=== PATIENT | male | born 1985 | race Caucasian/White ===

== ENCOUNTER 2020-11-29 09:19 | Inpatient (IN) | payer OTHER ==
[2020-11-29 09:32] LABS: Glucose,Whole Blood 69 mg/dL (75-99)
[2020-11-29] MEDS ORDERED: SODIUM CHLORIDE 0.9% 1,000 ML IV ONE ×2 (09:51)
[2020-11-29] MEDS: NOREPINEPHRINE 32 MG in SODIUM CHLORIDE 0.9% 218 ML IV ONE ×2 (09:55→22:55)
[2020-11-29 10:17] LABS: ABG Base Excess -24.8 mmol/L; ABG HCO3 11 mmol/L (21-25); ABG PO2 185 mmHg (83-108); ABG TCO2 14 mmol/L (19-24); Allen Test Performed? Yes
[2020-11-29 10:18] LABS: ABG PH <6.80 (7.35-7.45)
[2020-11-29 10:22] LABS: ABG PCO2 89 mmHg (35-45)
[2020-11-29 10:25] LABS: Appearance,Urine Cloudy (Clear); Bilirubin,Urine Negative (Negative); Blood,Urine Negative (Negative); Color,Urine Yellow; Glucose,Urine (UA) Negative (Negative); Hyaline Casts,Urine 2 /lpf (0-2); Ketones,Urine Negative (Negative); Leukocyte Esterase,Urine Negative (Negative); Mucus,Urine Rare /hpf; Nitrite,Urine Negative (Negative); Protein,Urine 1+ (Negative); RBC,Urine 9 /hpf (0-5); Specific Gravity,Urine 1.028 (1.001-1.035); WBC,Urine 14 /hpf (0-5)
[2020-11-29 10:32] LABS: Amphetamine Screen,Urine Detected (NotDetected); Barbiturate Screen,Urine Not Detected (NotDetected); Benzodiazepines Screen,Urine Detected (NotDetected); Cocaine Screen,Urine Detected (NotDetected); Methadone Screen, Urine Not Detected (NotDetected); Opiate Screen,Urine Detected (NotDetected); Oxycodone Screen, Urine Not Detected (NotDetected); Phencyclidine Screen,Urine Not Detected (NotDetected); Tricyclic Antidepressant,Urine Not Detected (NotDetected); Urn Cannabinoid Scrn Detected (NotDetected)
--- NOTE | 2020-11-29 10:42 | XR ---
EXAMINATION TYPE: XR chest 1V portable DATE OF EXAM: 11/29/2020 Comparison: None Clinical History: 34-year-old male confusion, heroine overdose, altered mental status Findings: ET tube is in place. The johnny is not well seen. Recommend pulling back the ET tube by 1.5 cm in rec ess and follow-up. Heart normal size. Right perihilar and upper and midlung consolidation. Some left perihilar consolidation also noted. No pleural effusion. No pneumothorax. NG tube courses below the d iaphragm. Impression: 1. Johnny not well seen in relation to the tip of the ET tube. Suspect that it is acceptable. As a pr ecautionary measure, pull back 1.5 cm. 2. Extensive right-sided consolidation and developing left perihilar consolidation. Correlate for pne umonia, aspiration, or developing noncardiogenic pulmonary edema as a consequence of the heroin overd ose.
--- NOTE | 2020-11-29 10:46 | CT ---
EXAMINATION TYPE: CT brain wo con DATE OF EXAM: 11/29/2020 COMPARISON: None HISTORY: Unresponsive. CT DLP: 1103.[address] of the brain was performed. The ventricles, basal cisterns and sulci overlying the cerebral convexities demonstrate a normal appe arance. There is no evidence for intracranial hemorrhage or sulcal effacement. No mass effects are seen. Osseous calvarium is intact. If symptoms persist consider MRI as clinically warranted. IMPRESSION: 1. No acute intracranial process is seen at this time.
[2020-11-29 10:50] LABS: Prothrombin Time 10.8 sec (9.0-12.0)
[2020-11-29] MEDS ORDERED: NALOXONE 0.4 MG/ML 1 ML VIAL IV PRN (11:04)
--- NOTE | 2020-11-29 11:04 | ED ---
CPR HPI - General Chief Complaint: Cardiac Arrest/CPR Stated Complaint: Unresponsive Time Seen by Provider: 11/29/20 09:20 Source: EMS Mode of arrival: EMS Limitations: no limitations, physical limitation - History of Present Illness Initial Comments: 35-year-old unidentified male presents to the emergency department status post cardiac arrest. EMS provided the history. They state that the patient was last seen well yesterday night. He was at a friends house. He has a history of polysubstance abuse. Friends awoke this morning around 8 pm and found him unresponsive on the floor. EMS arrived to the scene and found that the patient was pulseless. They did initiate CPR. The patient received 6 rounds of epinephrine and 2 mg of Narcan. He had 35 minutes with CPR before they recieved ROSC on the patient. He is intubated with an ET tube in the field. Patient is brought into the emergency department completely unresponsive with a GCS of 3. He is being bagged. He does have a tachycardic rhythm with a hypertensive blood pressure. Pupils are fixed and dilated at 6 mm. Patient had no gag during intubation. The friends deny that the patient had any medical problems. No known medications. No family that is reachable at this time. - Related Data Home Medications Medication Instructions Recorded Confirmed Unable To Assess [Unable to Assess] 11/29/20 11/29/20 Allergies Allergy/AdvReac Type Severity Reaction Status Date / Time No Known Allergies Allergy Verified 11/29/20 09:26 Review of Systems ROS Statement: Those systems with pertinent positive or pertinent negative responses have been documented in the HPI. ROS Other: All systems not noted in ROS Statement are negative. Past Medical History Past Medical History: No Reported History History of Any Multi-Drug Resistant Organisms: None Reported Past Surgical History: No Surgical Hx Reported Past Psychological History: No Psychological Hx Reported Smoking Status: Current every day smoker Past Alcohol Use History: None Reported Past Drug Use History: Heroin, IV Drug Use - Past Family History Father Family Medical History: Coronary Artery Disease (CAD), Myocardial Infarction (MS) Mother Family Medical History: Diabetes Mellitus, Hypertension General Exam Limitations: physical limitation General appearance: obtunded Head exam: Present: atraumatic, normocephalic Eye exam: Present: other (6 mm, non reactive) ENT exam: Present: mucous membranes dry Neck exam: Present: normal inspection Respiratory exam: Present: rales (right base) Cardiovascular Exam: Present: tachycardia, irregular rhythm GI/Abdominal exam: Present: distended Extremities exam: Present: other (no spontanous movement) Neurological exam: Present: altered, other (no gag, does not withdraw to pain, will not follow commands) Skin exam: Present: cyanosis, pallor Course Vital Signs 11/29/20 11/29/20 11/29/20 09:21 10:05 10:44 Temperature 32.4 F L Pulse Rate 102 H 86 89 Respiratory 16 16 20 Rate Blood Pressure 164/56 119/63 105/50 O2 Sat by Pulse 95 100 96 Oximetry 11/29/20 11/29/20 11/29/20 11:00 11:54 13:00 Temperature 90.1 F L 91.2 F L Pulse Rate 96 98 96 Respiratory 20 28 H 28 H Rate Blood Pressure 120/58 135/64 151/89 O2 Sat by Pulse 99 99 100 Oximetry 11/29/20 11/29/20 11/29/20 14:01 15:00 15:07 Temperature 91.2 F L Pulse Rate 92 83 87 Respiratory 28 H 24 28 H Rate Blood Pressure 120/63 139/67 129/90 O2 Sat by Pulse 99 94 L 86 L Oximetry 11/29/20 11/29/20 11/29/20 15:10 16:15 16:56 Temperature 91.8 F L Pulse Rate 88 92 96 Respiratory 28 H 20 Rate Blood Pressure 108/98 105/83 O2 Sat by Pulse 91 L 92 L Oximetry 11/29/20 11/29/20 11/29/20 17:43 18:36 19:27 Temperature 93.2 F L 95.5 F L 96.1 F L Pulse Rate 99 101 H 103 H Respiratory 20 20 20 Rate Blood Pressure 121/89 128/90 141/103 O2 Sat by Pulse 93 L 95 98 Oximetry 11/29/20 11/29/20 11/29/20 20:00 20:28 20:43 Temperature 96.6 F L Pulse Rate 105 H 103 H 104 H Respiratory 20 Rate Blood Pressure 143/105 O2 Sat by Pulse 98 Oximetry 11/29/20 11/29/20 11/29/20 21:00 22:00 23:00 Temperature 97.0 F L 97.2 F L 97.3 F L Pulse Rate 114 H 112 H 103 H Respiratory 26 H 28 H 26 H Rate Blood Pressure 139/104 146/104 122/90 O2 Sat by Pulse 99 99 100 Oximetry Procedures - Central Line Placement Right Femoral Consent Obtained: emergent situation Patient Placed on Monitor/Pulse Ox: Yes Prep: mask, gown, gloves Central Line Prep: Chlorhexidine scrub Ultrasound Used for Placement: Yes Central Line Lumen Inserted: triple Bloods Obtained for Lab: Yes Central Line Position: good blood return, all ports aspirated, flushed, capped, sutured in place with 3-0 nylon Dressing Applied: Tegaderm Patient Tolerated Procedure: well, no complications Medical Decision Making - Medical Decision Making Upon arrival the patient is promptly placed in a trauma bay 1. A thorough history and physical exam is performed. Patient does have pulses at this time and is intubated with an ET tube. Blood pressure is obtained and the patient's blood pressure is hypertensive at this time. Serial blood pressures are obtained and the patient does have trending downward measurements. Due to this the patient is given two push doses of epi. Access was attempted multiple times in the upper extremities however we were unsuccessful originally. I did place a right femoral central line and the patient is started on levophed. Patient does have decreased breath sounds on the left and therefore the tube is retracted 3 cm. Portable chest x-ray is performed. Laboratory studies were conducted. Review of the laboratory studies demonstrate a ph of 6.8, CO 89. Patient's respiratory rate is increased at 22. Potasssium 5.2. Cr 2. Glucose 69 on accucheck. Pt was given an amp of dextrose and repeat glucose is 341. AST 325. ALT 266. Trop 0.047. UA positive for opiates, amphetamines, methamphetamines, benzos, cocaine and thc. Chest x-ray demonstrates extensive right-sided consolidation and developing left perihilar consolidation. Patient is given a dose of Zosyn for suspected aspiration pneumonia. Patient is sent for a CT of his brain to assess for cerebral edema which demonstrates no acute process at this time. I did speak with Dr. Alfonso. Dr. Alfonso does present to the emergency department. Patient is hypotehermic with a temp of 32C. He instructed the patient is to not be warmed at this time and that he will accept the patient in to the ICU. I called and spoke with Dr. Mohr who agreed to admit the patient. Police do locate the patients family. I did speak with the patients parents and sister regarding the circumstances surrounding his event, the care he has been provided and his prognosis. - Lab Data Result diagrams: 11/30/20 03:25 11/30/20 20:45 Lab Results 11/29/20 11/29/20 11/29/20 Range/Units 09:31 10:00 10:01 WBC 8.9 (3.8-10.6) k/uL RBC 4.79 (4.30-5.90) m/uL Hgb 14.4 (13.0-17.5) gm/dL Hct 48.4 (39.0-53.0) % MCV 101.0 H (80.0-100.0) fL MCH 30.1 (25.0-35.0) pg MCHC 29.8 L (31.0-37.0) g/dL RDW 13.2 (11.5-15.5) % Plt Count 342 (150-450) k/uL MPV 7.9 Neutrophils % (Manual) 28 % Band Neuts % (Manual) 7 % Lymphocytes % (Manual) 59 % Monocytes % (Manual) 4 % Eosinophils % (Manual) 1 % Metamyelocytes % 1 % Myelocytes % 1 % Neutrophils # (Manual) 3.10 (1.3-7.7) k/uL Lymphocytes # (Manual) 5.25 H (1.0-4.8) k/uL Monocytes # (Manual) 0.36 (0-1.0) k/uL Eosinophils # (Manual) 0.09 (0-0.7) k/uL Metamyelocytes # (Man) 0.09 H (0) k/uL Myelocytes # (Manual) 0.09 H (0) k/uL Nucleated RBCs 0 (0-0) /100 WBC Manual Slide Review Performed Hypochromasia Marked Macrocytosis Slight PT (9.0-12.0) sec INR (<1.2) APTT (22.0-30.0) sec Sample Site ABG pH (7.35-7.45) ABG pCO2 (35-45) mmHg ABG pO2 (83-108) mmHg ABG HCO3 (21-25) mmol/L ABG Total CO2 (19-24) mmol/L ABG O2 Saturation (94-97) % ABG Base Excess mmol/L Philippe Test FiO2 % Sodium (137-145) mmol/L Potassium (3.5-5.1) mmol/L Chloride (98-107) mmol/L Carbon Dioxide (22-30) mmol/L Anion Gap mmol/L BUN (9-20) mg/dL Creatinine (0.66-1.25) mg/dL Est GFR (CKD-EPI)AfAm (>60 ml/min/1.73 sqM) Est GFR (CKD-EPI)NonAf (>60 ml/min/1.73 sqM) Glucose (74-99) mg/dL POC Glucose (mg/dL) 69 L (75-99) mg/dL POC Glu Silk Spreader ID [place] Light Calcium (8.4-10.2) mg/dL Total Bilirubin (0.2-1.3) mg/dL AST (17-59) U/L ALT (4-49) U/L Alkaline Phosphatase (38-126) U/L Creatine Kinase (55-170) U/L Troponin I (0.000-0.034) ng/mL Total Protein (6.3-8.2) g/dL Albumin (3.5-5.0) g/dL Urine Color Yellow Urine Appearance Cloudy (Clear) Urine pH 6.0 (5.0-8.0) Ur Specific Harris 1.028 (1.001-1.035) Urine Protein 1+ H (Negative) Urine Glucose (UA) Negative (Negative) Urine Ketones Negative (Negative) Urine Blood Negative (Negative) Urine Nitrite Negative (Negative) Urine Bilirubin Negative (Negative) Urine Urobilinogen 2.0 (<2.0) mg/dL Ur Leukocyte Esterase Negative (Negative) Urine RBC 9 H (0-5) /hpf Urine WBC 14 H (0-5) /hpf Hyaline Casts 2 (0-2) /lpf Urine Mucus Rare H (None) /hpf Urine Opiates Screen Detected H (NotDetected) Ur Oxycodone Screen Not Detected (NotDetected) Urine Methadone Screen Not Detected (NotDetected) Ur Propoxyphene Screen Not Detected (NotDetected) Ur Barbiturates Screen Not Detected (NotDetected) U Tricyclic Antidepress Not Detected (NotDetected) Ur Phencyclidine Scrn Not Detected (NotDetected) Ur Amphetamines Screen Detected H (NotDetected) U Methamphetamines Scrn Detected H (NotDetected) U Benzodiazepines Scrn Detected H (NotDetected) Urine Cocaine Screen Detected H (NotDetected) U Marijuana (THC) Screen Detected H (NotDetected) Serum Alcohol mg/dL 11/29/20 11/29/20 11/29/20 Range/Units 10:01 10:01 10:01 WBC (3.8-10.6) k/uL RBC (4.30-5.90) m/uL Hgb (13.0-17.5) gm/dL Hct (39.0-53.0) % MCV (80.0-100.0) fL MCH (25.0-35.0) pg MCHC (31.0-37.0) g/dL RDW (11.5-15.5) % Plt Count (150-450) k/uL MPV Neutrophils % (Manual) % Band Neuts % (Manual) % Lymphocytes % (Manual) % Monocytes % (Manual) % Eosinophils % (Manual) % Metamyelocytes % % Myelocytes % % Neutrophils # (Manual) (1.3-7.7) k/uL Lymphocytes # (Manual) (1.0-4.8) k/uL Monocytes # (Manual) (0-1.0) k/uL Eosinophils # (Manual) (0-0.7) k/uL Metamyelocytes # (Man) (0) k/uL Myelocytes # (Manual) (0) k/uL Nucleated RBCs (0-0) /100 WBC Manual Slide Review Hypochromasia Macrocytosis PT 10.8 (9.0-12.0) sec INR 1.0 (<1.2) APTT 45.0 H (22.0-30.0) sec Sample Site ABG pH (7.35-7.45) ABG pCO2 (35-45) mmHg ABG pO2 (83-108) mmHg ABG HCO3 (21-25) mmol/L ABG Total CO2 (19-24) mmol/L ABG O2 Saturation (94-97) % ABG Base Excess mmol/L Philippe Test FiO2 % Sodium 134 L (137-145) mmol/L Potassium 5.2 H (3.5-5.1) mmol/L Chloride 99 (98-107) mmol/L Carbon Dioxide 7 L* (22-30) mmol/L Anion Gap 28 mmol/L BUN 13 (9-20) mg/dL Creatinine 2.07 H (0.66-1.25) mg/dL Est GFR (CKD-EPI)AfAm 47 (>60 ml/min/1.73 sqM) Est GFR (CKD-EPI)NonAf 41 (>60 ml/min/1.73 sqM) Glucose 341 H (74-99) mg/dL POC Glucose (mg/dL) (75-99) mg/dL POC Glu Silk Spreader ID Calcium 9.3 (8.4-10.2) mg/dL Total Bilirubin 0.7 (0.2-1.3) mg/dL AST 325 H (17-59) U/L ALT 266 H (4-49) U/L Alkaline Phosphatase 95 (38-126) U/L Creatine Kinase 485 H (55-170) U/L Troponin I 0.047 H* (0.000-0.034) ng/mL Total Protein 6.0 L (6.3-8.2) g/dL Albumin 3.4 L (3.5-5.0) g/dL Urine Color Urine Appearance (Clear) Urine pH (5.0-8.0) Ur Specific Harris (1.001-1.035) Urine Protein (Negative) Urine Glucose (UA) (Negative) Urine Ketones (Negative) Urine Blood (Negative) Urine Nitrite (Negative) Urine Bilirubin (Negative) Urine Urobilinogen (<2.0) mg/dL Ur Leukocyte Esterase (Negative) Urine RBC (0-5) /hpf Urine WBC (0-5) /hpf Hyaline Casts (0-2) /lpf Urine Mucus (None) /hpf Urine Opiates Screen (NotDetected) Ur Oxycodone Screen (NotDetected) Urine Methadone Screen (NotDetected) Ur Propoxyphene Screen (NotDetected) Ur Barbiturates Screen (NotDetected) U Tricyclic Antidepress (NotDetected) Ur Phencyclidine Scrn (NotDetected) Ur Amphetamines Screen (NotDetected) U Methamphetamines Scrn (NotDetected) U Benzodiazepines Scrn (NotDetected) Urine Cocaine Screen (NotDetected) U Marijuana (THC) Screen (NotDetected) Serum Alcohol <10 mg/dL 11/29/20 Range/Units 10:11 WBC (3.8-10.6) k/uL RBC (4.30-5.90) m/uL Hgb (13.0-17.5) gm/dL Hct (39.0-53.0) % MCV (80.0-100.0) fL MCH (25.0-35.0) pg MCHC (31.0-37.0) g/dL RDW (11.5-15.5) % Plt Count (150-450) k/uL MPV Neutrophils % (Manual) % Band Neuts % (Manual) % Lymphocytes % (Manual) % Monocytes % (Manual) % Eosinophils % (Manual) % Metamyelocytes % % Myelocytes % % Neutrophils # (Manual) (1.3-7.7) k/uL Lymphocytes # (Manual) (1.0-4.8) k/uL Monocytes # (Manual) (0-1.0) k/uL Eosinophils # (Manual) (0-0.7) k/uL Metamyelocytes # (Man) (0) k/uL Myelocytes # (Manual) (0) k/uL Nucleated RBCs (0-0) /100 WBC Manual Slide Review Hypochromasia Macrocytosis PT (9.0-12.0) sec INR (<1.2) APTT (22.0-30.0) sec Sample Site r brach ABG pH <6.80 L* (7.35-7.45) ABG pCO2 89 H* (35-45) mmHg ABG pO2 185 H (83-108) mmHg ABG HCO3 11 L (21-25) mmol/L ABG Total CO2 14 L (19-24) mmol/L ABG O2 Saturation 97.0 (94-97) % ABG Base Excess -24.8 mmol/L Philippe Test Yes FiO2 100 % Sodium (137-145) mmol/L Potassium (3.5-5.1) mmol/L Chloride (98-107) mmol/L Carbon Dioxide (22-30) mmol/L Anion Gap mmol/L BUN (9-20) mg/dL Creatinine (0.66-1.25) mg/dL Est GFR (CKD-EPI)AfAm (>60 ml/min/1.73 sqM) Est GFR (CKD-EPI)NonAf (>60 ml/min/1.73 sqM) Glucose (74-99) mg/dL POC Glucose (mg/dL) (75-99) mg/dL POC Glu Silk Spreader ID Calcium (8.4-10.2) mg/dL Total Bilirubin (0.2-1.3) mg/dL AST (17-59) U/L ALT (4-49) U/L Alkaline Phosphatase (38-126) U/L Creatine Kinase (55-170) U/L Troponin I (0.000-0.034) ng/mL Total Protein (6.3-8.2) g/dL Albumin (3.5-5.0) g/dL Urine Color Urine Appearance (Clear) Urine pH (5.0-8.0) Ur Specific Harris (1.001-1.035) Urine Protein (Negative) Urine Glucose (UA) (Negative) Urine Ketones (Negative) Urine Blood (Negative) Urine Nitrite (Negative) Urine Bilirubin (Negative) Urine Urobilinogen (<2.0) mg/dL Ur Leukocyte Esterase (Negative) Urine RBC (0-5) /hpf Urine WBC (0-5) /hpf Hyaline Casts (0-2) /lpf Urine Mucus (None) /hpf Urine Opiates Screen (NotDetected) Ur Oxycodone Screen (NotDetected) Urine Methadone Screen (NotDetected) Ur Propoxyphene Screen (NotDetected) Ur Barbiturates Screen (NotDetected) U Tricyclic Antidepress (NotDetected) Ur Phencyclidine Scrn (NotDetected) Ur Amphetamines Screen (NotDetected) U Methamphetamines Scrn (NotDetected) U Benzodiazepines Scrn (NotDetected) Urine Cocaine Screen (NotDetected) U Marijuana (THC) Screen (NotDetected) Serum Alcohol mg/dL Critical Care Time Critical Care Time: Yes Critical Care Time: 32 minutes Disposition Clinical Impression: Cardiac arrest, Polysubstance overdose Disposition: ADMITTED IP TO THIS [facility] Condition: Critical Is patient prescribed a controlled substance at d/c from ED?: No Decision to Admit Reason: Admit from EC Decision Date: 11/29/20 Decision Time: 11:03
[2020-11-29 11:11] LABS: HCT 48.4 % (39.0-53.0); HGB 14.4 gm/dL (13.0-17.5); Hypochromasia Marked; MCH 30.1 pg (25.0-35.0); MCHC 29.8 g/dL (31.0-37.0); Macrocytosis Slight; Mean Platelet Volume 7.9; Platelet Count 342 k/uL (150-450); RBC 4.79 m/uL (4.30-5.90); RDW 13.2 % (11.5-15.5); WBC 8.9 k/uL (3.8-10.6)
[2020-11-29 11:16] LABS: ALT 266 U/L (4-49); AST 325 U/L (17-59); African American GFR (CKD) 47 (>60 ml/min/1.73 sqM); Albumin 3.4 g/dL (3.5-5.0); Alcohol <10 mg/dL; Alkaline Phosphatase 95 U/L (38-126); Anion Gap 28 mmol/L; Blood Urea Nitrogen 13 mg/dL (9-20); Calcium 9.3 mg/dL (8.4-10.2); Chloride 99 mmol/L (98-107); Creatine Kinase 485 U/L (55-170); Glucose 341 mg/dL (74-99); Non-African American GFR(CKD) 41 (>60 ml/min/1.73 sqM); Potassium 5.2 mmol/L (3.5-5.1); Sodium 134 mmol/L (137-145); Total Bilirubin 0.7 mg/dL (0.2-1.3)
[2020-11-29] MEDS: PIPERACILLIN-TAZOBACTAM 3.375 GM in SODIUM CHLORIDE 0.9% 100 ML IVPB SCH ×2 (11:36→20:27)
[2020-11-29] MEDS ORDERED: SODIUM CHLORIDE 0.9% 2,000 ML IV ONE (12:00)
[2020-11-29] MEDS ORDERED: IPRATROPIUM-ALBUTEROL 3 ML NEB INHALATION PRN (12:03)
--- NOTE | 2020-11-29 12:03 | P.CNPUL ---
History of Present Illness Consult date: 11/29/20 Chief complaint: cardiac arrest History of present illness: 35-year-old male patient was found unresponsive by EMS. There is history of polysubstance abuse. The patient was coded for a total of 30 minutes on the scene getting worse a total of 6 doses of epinephrine was given and the patient was also given CPR. The patient was intubated on the scene and following that he was brought in to the emergency department at [facility]. He arrived completely unresponsive with fixed dilated pupils. He was hypothermic. He was also hypotensive. Immediately was placed on norepinephrine infusion which is currently infusing at 0.5 mcg/kg per minute. Urine output is minimal at this point in time. The patient has hypothermic with a temperature of 32C at this point in time is on a mechanical ventilator with a rate of 1 wit h a rate with a tidal volume of 500 and FiO2 of 1% with a PEEP of 5. Blood gases showed a pH of 6.8 with a pCO2 of 89 and pO2 of 185. Coagulation profile was normal. Initial troponin was 0.04. The urine test is positive for amphetamine, methamphetamine, benzodiazepine, and marijuana and cocaine. He was also positive for opiates. UA is showing 14 WBCs, +1 protein, the CBC showing a white cell count of 8.2 hemoglobin 14.4. Post intubation chest x-ray shows an extensive right lung consolidation consistent with an aspiration pneumonia. ET tube was deviated trachea and had to be pulled back by about 1 cm. Patient is covered with IV Zosyn. Currently on pressors with high-dose norepinephrine infusion. Triple lumen catheter was inserted in his right femoral vein by emergency services. He remains completely unresponsive. He has not received any sedation. He is not breathing above the vent. Not to getting the respirator. Pupils are fixed dilated. No cough reflex. No gag reflex. No corneal reflex. No other history is available. The family is unknown and police is trying to locate family members. Review of Systems ROS unobtainable: due to endotracheal tube Past Medical History Past Medical History: No Reported History History of Any Multi-Drug Resistant Organisms: None Reported Past Surgical History: No Surgical Hx Reported Past Psychological History: No Psychological Hx Reported Smoking Status: Current every day smoker Past Alcohol Use History: None Reported Past Drug Use History: Heroin, IV Drug Use Medications and Allergies Home Medications Medication Instructions Recorded Confirmed Type Unable To Assess [Unable to Assess] 11/29/20 11/29/20 History Allergies Allergy/AdvReac Type Severity Reaction Status Date / Time No Known Allergies Allergy Verified 11/29/20 09:26 Physical Exam Vitals: Vital Signs Temp Pulse Resp BP Pulse Ox 11/29/20 11:00 96 20 120/58 99 11/29/20 10:44 89 20 105/50 96 11/29/20 10:05 32.4 F L 86 16 119/63 100 11/29/20 09:21 102 H 16 164/56 95 Intake and Output 11/28/20 11/29/20 11/29/20 22:59 06:59 14:59 Intake Total 8.505 Balance 8.505 Intake: Intake, IV Titration 8.505 Amount Norepinephrine 32 mg In 8.505 Sodium Chloride 0.9% 218 ml @ 0.05 MCG/KG/MIN 2. 126 mls/hr IV .Q24H ONE Rx#:[id number] Other: Weight 90.718 kg Unresponsive, intubated, on a mechanical ventilator, occasional agonal breathing Head exam was generally normal. There was no scleral icterus or corneal arcus. Mucous membranes were moist. Neck was supple and without jugular venous distension, thyromegaly, or carotid bruits. Carotids were easily palpable bilaterally. There was no adenopathy. Lungs reveal equal and symmetrical breath sounds with some rales over the right lung compared to left Cardiac exam revealed the PMI to be normally situated and sized. The rhythm was regular and no extrasystoles were noted during several minutes of auscultation. The first and second heart sounds were normal and physiologic splitting of the second heart sound was noted. There were no murmurs, rubs, clicks, or gallops. Abdominal exam revealed normal bowel sounds. The abdomen was soft, non-tender, and without masses, organomegaly, or appreciable enlargement of the abdominal aorta. Extremities are cold and clammy with diminished pulses. No cyanosis or c lubbing. Neurologic exam is showing fixed dilated pupils. No nystagmus no clonus. No facial asymmetry. Absent corneal reflex. Absent gag reflex. No motor function. No sensory functions. Completely comatose and unresponsive. Results - Laboratory Findings CBC and BMP: 11/29/20 10:01 ABG ABG pH <6.80 (7.35-7.45) L* 08/19/21 10:11 ABG pCO2 89 mmHg (35-45) H* 11/29/20 10:11 ABG pO2 185 mmHg (83-108) H 11/29/20 10:11 ABG O2 Saturation 97.0 % (94-97) 11/29/20 10:11 PT/INR, D-dimer PT 10.8 sec (9.0-12.0) 11/29/20 10:01 INR 1.0 (<1.2) 11/29/20 10:01 Abnormal lab findings: Abnormal Labs 11/29/20 11/29/20 11/29/20 09:31 10:00 10:01 MCV 101.0 H MCHC 29.8 L APTT ABG pH ABG pCO2 ABG pO2 ABG HCO3 ABG Total CO2 POC Glucose (mg/dL) 69 L Troponin I Urine Protein 1+ H Urine RBC 9 H Urine WBC 14 H Urine Mucus Rare H Urine Opiates Screen Detected H Ur Amphetamines Screen Detected H U Methamphetamines Scrn Detected H U Benzodiazepines Scrn Detected H Urine Cocaine Screen Detected H U Marijuana (THC) Screen Detected H 11/29/20 11/29/20 11/29/20 10:01 10:01 10:11 MCV MCHC APTT 45.0 H ABG pH <6.80 L* ABG pCO2 89 H* ABG pO2 185 H ABG HCO3 11 L ABG Total CO2 14 L POC Glucose (mg/dL) Troponin I 0.047 H* Urine Protein Urine RBC Urine WBC Urine Mucus Urine Opiates Screen Ur Amphetamines Screen U Methamphetamines Scrn U Benzodiazepines Scrn Urine Cocaine Screen U Marijuana (THC) Screen - Diagnostic Findings Chest x-ray: image reviewed Assessment and Plan Plan: 1 Acute cardiac arrest with a prolonged down time estimated to be at least 30 minutes.. Clinically the patient is unresponsive has not received any sedation. Consider anoxic encephalopathy. Unfortunately, the neurologic exam is quite poor at this point in time without any brainstem reflexes. Nevertheless the patient's hypothermic and acidotic and a repeat examination is to be done once these metabolic derangements have recovered. CAT scan of the brain was negative. 2 polysubstance abuse positive for benzodiazepines, opiates, marijuana, cocaine and amphetamine and methamphetamine 3 acute hypoxic respiratory failure currently intubated on a mechanical ventilator 4 acute right lung pneumonia, extensive consolidation involving the right lung, consider aspiration 5 acute shock currently on high-dose pressors secondary to above 6 severe metabolic acidosis with a pH of 6.8. 7 troponin leak secondary to above 8 hypothermia secondary to above Plan Continue ventilator support. Increase the respiratory rate of the 28th. Keep the tidal department 500 with an FiO2 100% with a PEEP of 5 and repeated blood gases once the patient is in the intensive care unit Keep the patient additional 4 L of bolus. The patient has already received 2 L in the emergency department and 1 maintaining following that at the rate of 150 mL an hour normal saline Sputum Gram stain and culture and blood culture we'll obtain an official be kept on IV Zosyn Will monitor hemodynamics and temperature Follow-up cardiac enzymes EKG Check lactic acid levels Neurology consultation No sedation for now IV Protonix for GI prophylaxis twice a day Lovenox 40 mg subcu for prophylaxis Obtain echocardiogram Condition is extremely critical. Would locate family members. We'll continue to follow. Time with Patient: Greater than 30
[2020-11-29 12:08] LABS: Band Neutrophils % 7 %; Eosinophils # (M) 0.09 k/uL (0-0.7); Lymphocytes # (M) 5.25 k/uL (1.0-4.8); Metamyelocytes # (M) 0.09 k/uL (0); Metamyelocytes % 1 %; Monocytes # (M) 0.36 k/uL (0-1.0); Myelocytes # (M) 0.09 k/uL (0); Myelocytes % 1 %; Neutrophils % (M) 28 %; Nucleated Red Blood Cells 0 /100 WBC (0-0); Total Cells Counted 200
[2020-11-29 12:13] LABS: Carbon Dioxide 7 mmol/L (22-30)
[2020-11-29] MEDS: PANTOPRAZOLE 40 MG/10 ML VIAL IVP SCH (12:43)
[2020-11-29] MEDS: ENOXAPARIN 40 MG/0.4 ML SYRINGE SQ SCH (12:45)
[2020-11-29] MEDS ORDERED: MANNITOL 20% IV ONE (13:20)
[2020-11-29] MEDS ORDERED: levETIRAcetam IV 1,000 MG in SALINE 1 100ML.BAG IVPB STA (13:26)
--- NOTE | 2020-11-29 13:44 | P.CNNES ---
History of Present Illness Consult date: 11/29/20 Requesting physician: Etelvina Peraza Reason for Consult: cardiac arrest History of Present Illness: This is a 35-year-old gentleman with history of polysubstance abuse who sent her to the emergency department on 11/29/2020 via EMS since the patient was found unresponsive. History is obtained from medical record. It seems the patient was coded for total of at least 30 minutes and received 6 doses a total of epinephrine and also the patient received CPR. Patient was intubated at the scene. Patient arrives completely unresponsive with the fixed dilated pupils and hypothermic and hypotensive per ICU team. Some of the workup in the hospital consisted of: Initial vital signs on presentation is blood pressure of 164/56, heart rate of 102, respiratory of 16, temperature of 32.4 Fahrenheit rectal and the pulse ox of 95% on mechanical ventilation 100%. CT of the head is reported as no acute intracranial process seen at this time. I personally reviewed the CT of the head and I feel like the patient has severe loss of [place] to white matter junction and constricted ventricle size throughout because of cerebral edema. Initial white blood cell is 8.9 which is considered within normal limits. The MCV is 101 which is elevated area otherwise the hemoglobin and hematocrits is normal with a hemoglobin 14.4 hematocrit is 48.4, platelets of 342,000 which is considered within normal limits Chemistry panel is sodium was 134 which is mildly low, initial POC glucose 69 which is boderline low. but the serum glucose of 341 which is elevated. AST of 325, ALT of 266 which are elevated, CK level is 485 which is slightly elevated. Troponin is 0.047 which is slightly elevated. The creatinine is 2.07 also elevated and the carbon dioxide on presentation 7. Urine toxicology screen is positive for opiates, amphetamine, methamphetamine, benzodiazepine, cocaine and marijuana. Serum alcohol level was less than 10. Review of Systems Review of system is limited because of his condition but the pertinent positive and negative as per HPI. Past Medical History Past Medical History: No Reported History History of Any Multi-Drug Resistant Organisms: None Reported Past Surgical History: No Surgical Hx Reported Past Psychological History: No Psychological Hx Reported Smoking Status: Current every day smoker Past Alcohol Use History: None Reported Past Drug Use History: Heroin, IV Drug Use Medications and Allergies Home Medications Medication Instructions Recorded Confirmed Type Unable To Assess [Unable to Assess] 11/29/20 11/29/20 History Allergies Allergy/AdvReac Type Severity Reaction Status Date / Time No Known Allergies Allergy Verified 11/29/20 09:26 Physical Examination - Vital Signs Vital Signs: Vital Signs Temp Pulse Resp BP Pulse Ox 11/29/20 11:54 32.3 F L 98 28 H 135/64 99 11/29/20 11:00 96 20 120/58 99 11/29/20 10:44 89 20 105/50 96 11/29/20 10:05 32.4 F L 86 16 119/63 100 11/29/20 09:21 102 H 16 164/56 95 Intake and Output 11/28/20 11/29/20 11/29/20 22:59 06:59 14:59 Intake Total 8.505 Balance 8.505 Intake: Intake, IV Titration 8.505 Amount Norepinephrine 32 mg In 8.505 Sodium Chloride 0.9% 218 ml @ 0.05 MCG/KG/MIN 2. 126 mls/hr IV .Q24H ONE Rx#:[id number] Other: Weight 90.718 kg GENERAL: The patient is lying and does not appear in distin bed and is not in acute distress. CHEST: The heart rate is regular rate rhythm. No murmurs to auscultation. No carotid bruit bilaterally. LUNG: Clear to auscultation bilaterally no wheezing noted throughout. Not labored breathing. Intubated on mechanical ventilation. Is in agonal breathing (A/C set at 28 and he is breathing at 29). ABDOMEN/GI: Bowel sounds present in all 4 quadrants. No tenderness to palpation throughout. NEUROLOGICAL: Higher mental function: Comatose. GCS3 (E1, VT1, M1). Not attempting to verbalize or following commands. Cranial nerves: I had to manually opens his eyes. Primary gaze is midline. The pupils are round, equal and dilated (7mm) and felt very slugghishly reactive to light (felt went down to 5-6 bilaterally). No corneal reflex. No facial weak ness. Negative occulocephalic reflex. Negative gag reflex. Is breathing over the vent (set at 28 and is breathing at 29). Has agonal breathing. Otherwise rest could not be assessed because of his condition. Motor: The strength is could not be assess because of his condition. Initially to painful stimuli I felt patient was withdrawing on the left upper extremity but on repeated time he did not. Has tremors of the proximal thighs. Normal tone and bulk. Cerebellum: Unable to assess. Sensation: Unable to assess light touch and not withdrawing or grimacing to painful stimuli. Reflexes (right/left): 2+ throughout except at brachioradialis and ankles are 1+ bilaterally.. Plantars are mute bilaterally. Results Urinalysis is negative from for urinary tract infection. Coagulation study: PT of 10.8, INR 1.0, PTT of 45.0 which is mildly elevated - Laboratory Findings CBC and BMP: 11/29/20 10:01 11/29/20 10:01 Abnormal Lab Findings: Abnormal Labs 11/29/20 11/29/20 11/29/20 09:31 10:00 10:01 MCV 101.0 H MCHC 29.8 L Lymphocytes # (Manual) 5.25 H Metamyelocytes # (Man) 0.09 H Myelocytes # (Manual) 0.09 H APTT ABG pH ABG pCO2 ABG pO2 ABG HCO3 ABG Total CO2 Sodium Potassium Carbon Dioxide Creatinine Glucose POC Glucose (mg/dL) 69 L AST ALT Creatine Kinase Troponin I Total Protein Albumin Urine Protein 1+ H Urine RBC 9 H Urine WBC 14 H Urine Mucus Rare H Urine Opiates Screen Detected H Ur Amphetamines Screen Detected H U Methamphetamines Scrn Detected H U Benzodiazepines Scrn Detected H Urine Cocaine Screen Detected H U Marijuana (THC) Screen Detected H 11/29/20 11/29/20 11/29/20 10:01 10:01 10:01 MCV MCHC Lymphocytes # (Manual) Metamyelocytes # (Man) Myelocytes # (Manual) APTT 45.0 H ABG pH ABG pCO2 ABG pO2 ABG HCO3 ABG Total CO2 Sodium 134 L Potassium 5.2 H Carbon Dioxide 7 L* Creatinine 2.07 H Glucose 341 H POC Glucose (mg/dL) AST 325 H ALT 266 H Creatine Kinase 485 H Troponin I 0.047 H* Total Protein 6.0 L Albumin 3.4 L Urine Protein Urine RBC Urine WBC Urine Mucus Urine Opiates Screen Ur Amphetamines Screen U Methamphetamines Scrn U Benzodiazepines Scrn Urine Cocaine Screen U Marijuana (THC) Screen 11/29/20 10:11 MCV MCHC Lymphocytes # (Manual) Metamyelocytes # (Man) Myelocytes # (Manual) APTT ABG pH <6.80 L* ABG pCO2 89 H* ABG pO2 185 H ABG HCO3 11 L ABG Total CO2 14 L Sodium Potassium Carbon Dioxide Creatinine Glucose POC Glucose (mg/dL) AST ALT Creatine Kinase Troponin I Total Protein Albumin Urine Protein Urine RBC Urine WBC Urine Mucus Urine Opiates Screen Ur Amphetamines Screen U Methamphetamines Scrn U Benzodiazepines Scrn Urine Cocaine Screen U Marijuana (THC) Screen Assessment and Plan Assessment: * Anoxic brain injury due to prolonged cardiac arrest (ate least 30 minutes). * Severe Global cerebral edema due to above * Polysubstance abuse (UDS positive for positive for opiates, amphetamine, methamphetamine, benzodiazepine, cocaine) * Elevated liver function tests likely liver shock from cardiac arrest * Hypothermic due Likely #1 * Acute hypoxic respiratory failure and is intubated on a mechanical ventilation * Severe metabolic acidosis * Troponin leak Plan: I loaded the patient with Manitol once and started the patient on 3% hypertonic saline 50cc/hour. Goal Na is 145-155. Q4 hour sodium checks. Ordered a stat EEG. Because of the tremor I started the patient prophylactically on Keppra 750mg IV every 12 hours with loading once of 1gm. I ordered ammonia level, TSH Q1 hours neuro-checks. Started on Thiamine 100mg daily IV. We'll defer the rest of the medical management to the primary and ICU team. Patient's prognosis appears poor because of the prolonged cardiac arrest, significant cerebral edema and neurological exam (has only brainstem reflex: breathing over vent and pupils are slugghishly reactive to light). Recommend patient to be transferred to a tertiary center for escalation of care for his cerebral edema. The plan is discussed with the patient nurse and the primary team. Thank you for the consultation. Francis Ho MD Neuro-Hospitalist Time with Patient: Greater than 30
[2020-11-29] MEDS: THIAMINE 100 MG/ML 2 ML VIAL IVP SCH (13:51)
[2020-11-29] MEDS: SODIUM CHLORIDE 3%(HYPERTONIC) 500 ML IV SCH (13:53)
[2020-11-29] MEDS: IPRATROPIUM-ALBUTEROL 3 ML NEB INHALATION SCH ×2 (14:55→20:28)
--- NOTE | 2020-11-29 15:59 | EEG ---
ELECTROENCEPHALOGRAM REPORT DATE OF SERVICE: 11/29/2020. CLINICAL HISTORY: This is a 35-year-old gentleman who presented to the emergency department after having a cardiac arrest who has altered mental status. The video EEG is obtained to evaluate for seizure epileptiform activity. RELEVANT MEDICATION: The patient is not on any antiepileptic drugs. EEG TYPE: A routine 21-channel EEG is performed with video using the 10/20 electrode placement system. DESCRIPTION: The patient is intubated on a ventilator. The background consists of low voltage 0.5 hertz delta activity that is nonrhythmic and appears to be poorly modulated and poorly sustained. There is no sleep architecture seen. There is no focal slowing seen. There is diffuse myogenic artifact. Interictal and ictal is none. ACTIVATION PROCEDURE: Photic stimulation did not evoke a posterior driving response. There is no abnormality during the photic stimulation. Hyperventilation is not performed. CLINICAL INTERPRETATION: This is an abnormal routine EEG. The background slowing is suggestive of severe encephalopathy. There are no focal slowing, epileptiform discharges or seizure on the EEG. Clinical correlation is recommended. MMANALI / IMELDAN: [id number] / MTDD
[2020-11-29] MEDS: levETIRAcetam IV 750 MG in SODIUM CHLORIDE 0.9% 100 ML IVPB SCH (21:37)
[2020-11-30 00:47] LABS: Glucose,Whole Blood 161 mg/dL (75-99)
[2020-11-30] MEDS: SODIUM CHLORIDE 3%(HYPERTONIC) 500 ML IV SCH ×2 (01:59→12:39)
[2020-11-30] MEDS: PIPERACILLIN-TAZOBACTAM 3.375 GM in SODIUM CHLORIDE 0.9% 100 ML IVPB SCH ×3 (03:34→20:28)
[2020-11-30 03:48] LABS: HCT 52.1 % (39.0-53.0); HGB 16.4 gm/dL (13.0-17.5); Hypochromasia Slight; MCH 29.1 pg (25.0-35.0); MCHC 31.5 g/dL (31.0-37.0); Mean Platelet Volume 7.5; Platelet Count 358 k/uL (150-450); RBC 5.64 m/uL (4.30-5.90); WBC 14.5 k/uL (3.8-10.6)
[2020-11-30 03:55] LABS: MCV 92.4 fL (80.0-100.0)
[2020-11-30 04:05] LABS: Calcium 7.7 mg/dL (8.4-10.2); Potassium 4.5 mmol/L (3.5-5.1)
[2020-11-30 04:52] LABS: ABG Base Excess -17.7 mmol/L; ABG HCO3 12 mmol/L (21-25); ABG Oxygen Saturation 98.8 % (94-97); ABG PCO2 38 mmHg (35-45); ABG PO2 156 mmHg (83-108); ABG TCO2 13 mmol/L (19-24); Allen Test Performed? Yes
[2020-11-30 04:55] LABS: Band Neutrophils % 49 %; Lymphocytes # (M) 2.32 k/uL (1.0-4.8); Metamyelocytes # (M) 0.44 k/uL (0); Metamyelocytes % 3 %; Monocytes # (M) 0.15 k/uL (0-1.0); Myelocytes # (M) 0.15 k/uL (0); Myelocytes % 1 %; Neutrophils % (M) 31 %; Nucleated Red Blood Cells 0 /100 WBC (0-0); Total Cells Counted 200
[2020-11-30 04:56] LABS: Anisocytosis (M) Present; Large Platelets Present; Poikilocytosis (M) Present
[2020-11-30 04:58] LABS: Polychromasia Present
[2020-11-30] MEDS: NOREPINEPHRINE 32 MG in SODIUM CHLORIDE 0.9% 218 ML IV ONE (05:34)
[2020-11-30 06:15] LABS: Glucose,Whole Blood 159 mg/dL (75-99)
[2020-11-30] MEDS: IPRATROPIUM-ALBUTEROL 3 ML NEB INHALATION SCH ×4 (07:21→18:53)
--- NOTE | 2020-11-30 07:37 | P.HPIM ---
History of Present Illness This is a 35 years old male who presents with cardiac arrest. Patient was seen with his friends, last time he was seen a week was yesterday evening. This morning patient was found unresponsive and EMS were called, he underwent CPR and the downtown was about 35-40 minutes, 6 Amps of epinephrine. At presentation he was hypothermic with a temperature of 32.4. He was hypotensive and he had to be placed on the levophed at 0.05 and later on has to be increased at 1.0 g per KG per minute. He was intubated and in place and mechanical ventilations with PEEP of 5, R and had to be increased to 10, tidal: Was 500 and FiO2 of 100%. His pH showing acidosis with 6.8, high pCO2 of 89 and PaO2 185. Troponin were elevated mildly to 0.08 and 0.04. Urine was positive with amphetamines, methamphetamines, benzodiazepines, opioids, cocaine, marijuana. As per report. His friends patient was using any illicit substance he can get his hands on. Chest x-ray showing extensive right lung consolidation suspicious for aspiration pneumonia and patient was started on Zosyn He was unresponsive with pupils fixed and dilated, neurologist suspected cerebral edema and he was started on mannitol and hypertonic saline with low sodium monitoring. Also he was started on Keppra prophylactically. His liver enzymes were slightly elevated around 200-301 increased at 55. Despite his very poor prognosis neurologist recommended patient to be t ransferred to a tertiary care center today given his age and to give him last chance. I discussed the case with Dr. Lino, hospitalist from [facility] who accepted the patient. Review of Systems n/a Past Medical History Past Medical History: No Reported History History of Any Multi-Drug Resistant Organisms: None Reported Past Surgical History: No Surgical Hx Reported Past Psychological History: No Psychological Hx Reported Smoking Status: Current every day smoker Past Alcohol Use History: None Reported Past Drug Use History: Heroin, IV Drug Use - Past Family History Father Family Medical History: Coronary Artery Disease (CAD), Myocardial Infarction (MS) Mother Family Medical History: Diabetes Mellitus, Hypertension Medications and Allergies Home Medications Medication Instructions Recorded Confirmed Type Unable To Assess [Unable to Assess] 11/29/20 11/29/20 History Allergies Allergy/AdvReac Type Severity Reaction Status Date / Time No Known Allergies Allergy Verified 11/29/20 09:26 Physical Exam Vitals: Vital Signs Temp Pulse Resp BP Pulse Ox 11/29/20 13:00 91.2 F L 96 28 H 151/89 100 11/29/20 11:54 90.1 F L 98 28 H 135/64 99 11/29/20 11:00 96 20 120/58 99 11/29/20 10:44 89 20 105/50 96 11/29/20 10:05 32.4 F L 86 16 119/63 100 11/29/20 09:21 102 H 16 164/56 95 Intake and Output 11/28/20 11/29/20 11/29/20 22:59 06:59 14:59 Intake Total 8.505 Balance 8.505 Intake: Intake, IV Titration 8.505 Amount Norepinephrine 32 mg In 8.505 Sodium Chloride 0.9% 218 ml @ 0.05 MCG/KG/MIN 2. 126 mls/hr IV .Q24H ONE Rx#:[id number] Other: Weight 90.718 kg -GENERAL: The patient is unresponsive to verbal or tactile stimuli. Patient is intubated on mechanical ventilation HEENT: Pupils are round and equally reacting to light. EOMI. No scleral icterus. No conjunctival pallor. Normocephalic, atraumatic. No pharyngeal erythema. No thyromegaly. CARDIOVASCULAR: S1 and S2 present. No murmurs, rubs, or gallops. PULMONARY: Chest is clear to auscultation, no wheezing or crackles. ABDOMEN: Soft, nontender, nondistended, normoactive bowel sounds. No palpable organomegaly. MUSCULOSKELETAL: No joint swelling or deformity. EXTREMITIES: No cyanosis, clubbing, or pedal edema. -NEUROLOGICAL: , comatose, unresponsive. Pupils are fixed and dilated, and unreactive to light, slight twitch in of the right thigh muscles. Exam is limited by the patient condition and the fact he is intubated -SKIN: No rashes. no petechiae. multiple needle oslis in both extremities Results CBC & Chem 7: 11/30/20 03:25 11/30/20 04:30 Labs: Abnormal Lab Results - Last 24 Hours (Table) 11/29/20 11/29/20 11/29/20 Range/Units 09:31 10:00 10:01 MCV 101.0 H (80.0-100.0) fL MCHC 29.8 L (31.0-37.0) g/dL Lymphocytes # (Manual) 5.25 H (1.0-4.8) k/uL Metamyelocytes # (Man) 0.09 H (0) k/uL Myelocytes # (Manual) 0.09 H (0) k/uL APTT (22.0-30.0) sec ABG pH (7.35-7.45) ABG pCO2 (35-45) mmHg ABG pO2 (83-108) mmHg ABG HCO3 (21-25) mmol/L ABG Total CO2 (19-24) mmol/L Sodium (137-145) mmol/L Potassium (3.5-5.1) mmol/L Carbon Dioxide (22-30) mmol/L Creatinine (0.66-1.25) mg/dL Glucose (74-99) mg/dL POC Glucose (mg/dL) 69 L (75-99) mg/dL AST (17-59) U/L ALT (4-49) U/L Creatine Kinase (55-170) U/L Troponin I (0.000-0.034) ng/mL Total Protein (6.3-8.2) g/dL Albumin (3.5-5.0) g/dL Urine Protein 1+ H (Negative) Urine RBC 9 H (0-5) /hpf Urine WBC 14 H (0-5) /hpf Urine Mucus Rare H (None) /hpf Urine Opiates Screen Detected H (NotDetected) Ur Amphetamines Screen Detected H (NotDetected) U Methamphetamines Scrn Detected H (NotDetected) U Benzodiazepines Scrn Detected H (NotDetected) Urine Cocaine Screen Detected H (NotDetected) U Marijuana (THC) Screen Detected H (NotDetected) 11/29/20 11/29/20 11/29/20 Range/Units 10:01 10:01 10:01 MCV (80.0-100.0) fL MCHC (31.0-37.0) g/dL Lymphocytes # (Manual) (1.0-4.8) k/uL Metamyelocytes # (Man) (0) k/uL Myelocytes # (Manual) (0) k/uL APTT 45.0 H (22.0-30.0) sec ABG pH (7.35-7.45) ABG pCO2 (35-45) mmHg ABG pO2 (83-108) mmHg ABG HCO3 (21-25) mmol/L ABG Total CO2 (19-24) mmol/L Sodium 134 L (137-145) mmol/L Potassium 5.2 H (3.5-5.1) mmol/L Carbon Dioxide 7 L* (22-30) mmol/L Creatinine 2.07 H (0.66-1.25) mg/dL Glucose 341 H (74-99) mg/dL POC Glucose (mg/dL) (75-99) mg/dL AST 325 H (17-59) U/L ALT 266 H (4-49) U/L Creatine Kinase 485 H (55-170) U/L Troponin I 0.047 H* (0.000-0.034) ng/mL Total Protein 6.0 L (6.3-8.2) g/dL Albumin 3.4 L (3.5-5.0) g/dL Urine Protein (Negative) Urine RBC (0-5) /hpf Urine WBC (0-5) /hpf Urine Mucus (None) /hpf Urine Opiates Screen (NotDetected) Ur Amphetamines Screen (NotDetected) U Methamphetamines Scrn (NotDetected) U Benzodiazepines Scrn (NotDetected) Urine Cocaine Screen (NotDetected) U Marijuana (THC) Screen (NotDetected) 11/29/20 Range/Units 10:11 MCV (80.0-100.0) fL MCHC (31.0-37.0) g/dL Lymphocytes # (Manual) (1.0-4.8) k/uL Metamyelocytes # (Man) (0) k/uL Myelocytes # (Manual) (0) k/uL APTT (22.0-30.0) sec ABG pH <6.80 L* (7.35-7.45) ABG pCO2 89 H* (35-45) mmHg ABG pO2 185 H (83-108) mmHg ABG HCO3 11 L (21-25) mmol/L ABG Total CO2 14 L (19-24) mmol/L Sodium (137-145) mmol/L Potassium (3.5-5.1) mmol/L Carbon Dioxide (22-30) mmol/L Creatinine (0.66-1.25) mg/dL Glucose (74-99) mg/dL POC Glucose (mg/dL) (75-99) mg/dL AST (17-59) U/L ALT (4-49) U/L Creatine Kinase (55-170) U/L Troponin I (0.000-0.034) ng/mL Total Protein (6.3-8.2) g/dL Albumin (3.5-5.0) g/dL Urine Protein (Negative) Urine RBC (0-5) /hpf Urine WBC (0-5) /hpf Urine Mucus (None) /hpf Urine Opiates Screen (NotDetected) Ur Amphetamines Screen (NotDetected) U Methamphetamines Scrn (NotDetected) U Benzodiazepines Scrn (NotDetected) Urine Cocaine Screen (NotDetected) U Marijuana (THC) Screen (NotDetected) Assessment and Plan Assessment: Status post cardiac arrest, downtown was more than 30 minutes Patient is unresponsive with Possible cerebral edema. Anoxic brain energy is highly suspected. Right aspiration pneumonia with septic shock Acute hypoxemic respiratory failure requiring intubation and mechanical ventilation Substance abuse with urine drug screen positive for many substances including amphetamine/methamphetamine, benzodiazepine, opioids, marijuana, cocaine Severe acidosis Mildly elevated troponin Mildly elevated liver enzymes and ammonia Plan: This is a 35 years old male who presents with cardiac arrest and unresponsiveness. Continue with mechanical ventilation with pulmonary/critical team consult Neurology consult recommended mannitol and hypertonic saline with close monitoring of sodium continue with antibiotic and follow-up culture Monitor liver enzymes and troponin Monitor input and output. Keep Kera for seizure prophylaxis Monitor lytes and vitals. DVT and GI prophylaxis. Further recommendations as per clinical course of the patient DVT prophylaxis: Subcutaneous Lovenox GI Prophylaxis: Pepcid Prognosis is very poor Discussed the case with family at bedside including the father and mother, they agree for patient to be transferred to [facility] I discussed the case with Dr. Lino from [facility]. Who accepted the patient but wanted to discuss it with his critical care team. Pending for bed availability
[2020-11-30] MEDS ORDERED: MANNITOL 20% IV ONE (08:30)
--- NOTE | 2020-11-30 08:46 | XR ---
EXAMINATION TYPE: XR chest 1V portable DATE OF EXAM: 11/30/2020 COMPARISON: 11/29/2020 HISTORY: Pneumonia TECHNIQUE: Single frontal view of the chest is obtained. FINDINGS: Diffuse right-sided infiltrate with left lower lobe and right. No pleural effusion or pneu mothorax. ET and NG tube are stable. Artifact overlying the majority of the right chest. IMPRESSION: 1. Mild progression of diffuse infiltrate involving the right lung. 2. Stable left lower lobe infiltrate.
--- NOTE | 2020-11-30 09:28 | P.PN ---
Subjective Progress Note Date: 11/30/20 He was at bedside and he is accompanied with his parents and they stated they have not seen any improvement. I requested the patient to be transferred for escalation of care because of his cerebral edema but has not been accepted yet. Patient is not on any sedation. He is on 3% hypertonic saline 50cc/hr. He is also on norepinephrine 0.6mcg/kg/min. Per the patient's appearance to a stated that the patient has history of drug use since the age of 17 and he does polysubstance use he's been to rehab in the past but the he keeps relapsing. Patient stated that the most recently he was using drug use over his friend's house and the the friend notified family members he will that the patient was last normal at 3:00 on 11/29/2020 and then the his friend went to sleep and then when he woke up at 8:00 in the morning he found the patient unresponsive and therefore 911 was called. The family does not feel the story is truly accurate. Objective - Vital Signs Vital signs: Vital Signs Temp 99.5 F 11/30/20 06:00 Pulse 122 H 11/30/20 07:35 Resp 28 H 11/30/20 07:00 BP 122/75 11/30/20 07:00 Pulse Ox 98 11/30/20 07:00 Intake & Output 11/29/20 11/30/20 11/30/20 18:59 06:59 18:59 Intake Total 250.000 460.706 50 Output Total 1650 830 40 Balance -1400.000 -369.294 10 Weight 90.718 kg 84 kg Intake: IV 250 50 Sodium Chloride 3%( 250 50 Hypertonic) 500 ml @ 50 mls/hr IV .Q10H [facility] Rx#: [id number] Intake, IV Titration 250.000 210.706 Amount Norepinephrine 32 mg In 250.000 210.706 Sodium Chloride 0.9% 218 ml @ 0.05 MCG/KG/MIN 2. 126 mls/hr IV .Q24H [facility] Rx#:[id number] Output: Urine 1650 830 40 Other: Voiding Method Indwelling Catheter - Exam GENERAL: The patient is lying and does not appear in distin bed and is not in acute distress. NEUROLOGICAL: Not on any sedation. Higher mental function: Comatose. GCS3 (E1, VT1, M1). Not attempting to verba lize or following commands. Cranial nerves: I had to manually opens his eyes. Primary gaze is midline. The pupils are round, equal and are 2mm and slugghishly reactive to light. No corneal reflex. No facial weakness. Negative occulocephalic reflex. Negative gag or cough reflex. Is breathing over the vent (set at 28 and is breathing at 31). Has agonal breathing. Otherwise rest could not be assessed because of his condition. Motor: The strength is could not be assess because of his condition. No withdrawing to any painful stimuli. Decrease tone throughout. Normal bulk. Cerebellum: Unable to assess. Sensation: Unable to assess light touch and not withdrawing or grimacing to p ainful stimuli. Reflexes (right/left): Triceps are 1-2+. Otherwise 1+ throughout. Plantars are mute bilaterally. WORK-UP: CT of the head is reported as no acute intracranial process seen at this time. I personally reviewed the CT of the head and I feel like the patient has severe loss of spain to white matter junction and constricted ventricle size throughout because of cerebral edema. Routine EEG on 11/29/2020: Is abnormal. The background slowing is suggestive of severe supple tachycardia. There are no focal slowing, epileptiform discharges or seizure on EEG. AST of 325, ALT of 266 which are elevated, CK level is 485 which is slightly elevated. Ammonia level is 55 and the normal is less than 33 Urine toxicology screen is positive for opiates, amphetamine, methamphetamine, benzodiazepine, cocaine and marijuana. Serum alcohol level was less than 10. His troponin is elevated to 7.20. TSH is 0.631 which is considered within normal limits. Urinalysis is negative for urinary tract infection. - Labs CBC & Chem 7: 11/30/20 03:25 11/30/20 14:19 Labs: Abnormal Lab Results - Last 24 Hours (Table) 11/29/20 11/29/20 11/29/20 Range/Units 09:31 10:00 10:01 WBC (3.8-10.6) k/uL MCV 101.0 H (80.0-100.0) fL MCHC 29.8 L (31.0-37.0) g/dL Neutrophils # (Manual) (1.3-7.7) k/uL Lymphocytes # (Manual) 5.25 H (1.0-4.8) k/uL Metamyelocytes # (Man) 0.09 H (0) k/uL Myelocytes # (Manual) 0.09 H (0) k/uL APTT (22.0-30.0) sec ABG pH (7.35-7.45) ABG pCO2 (35-45) mmHg ABG pO2 (83-108) mmHg ABG HCO3 (21-25) mmol/L ABG Total CO2 (19-24) mmol/L ABG O2 Saturation (94-97) % Sodium (137-145) mmol/L Potassium (3.5-5.1) mmol/L Chloride (98-107) mmol/L Carbon Dioxide (22-30) mmol/L BUN (9-20) mg/dL Creatinine (0.66-1.25) mg/dL Glucose (74-99) mg/dL POC Glucose (mg/dL) 69 L (75-99) mg/dL Plasma Lactic Acid Sebastian (0.7-2.0) mmol/L Calcium (8.4-10.2) mg/dL AST (17-59) U/L ALT (4-49) U/L Ammonia (<30) umol/L Creatine Kinase (55-170) U/L Troponin I (0.000-0.034) ng/mL Total Protein (6.3-8.2) g/dL Albumin (3.5-5.0) g/dL Urine Protein 1+ H (Negative) Urine RBC 9 H (0-5) /hpf Urine WBC 14 H (0-5) /hpf Urine Mucus Rare H (None) /hpf Urine Opiates Screen Detected H (NotDetected) Ur Amphetamines Screen Detected H (NotDetected) U Methamphetamines Scrn Detected H (NotDetected) U Benzodiazepines Scrn Detected H (NotDetected) Urine Cocaine Screen Detected H (NotDetected) U Marijuana (THC) Screen Detected H (NotDetected) 11/29/20 11/29/20 11/29/20 Range/Units 10:01 10:01 10:01 WBC (3.8-10.6) k/uL MCV (80.0-100.0) fL MCHC (31.0-37.0) g/dL Neutrophils # (Manual) (1.3-7.7) k/uL Lymphocytes # (Manual) (1.0-4.8) k/uL Metamyelocytes # (Man) (0) k/uL Myelocytes # (Manual) (0) k/uL APTT 45.0 H (22.0-30.0) sec ABG pH (7.35-7.45) ABG pCO2 (35-45) mmHg ABG pO2 (83-108) mmHg ABG HCO3 (21-25) mmol/L ABG Total CO2 (19-24) mmol/L ABG O2 Saturation (94-97) % Sodium 134 L (137-145) mmol/L Potassium 5.2 H (3.5-5.1) mmol/L Chloride (98-107) mmol/L Carbon Dioxide 7 L* (22-30) mmol/L BUN (9-20) mg/dL Creatinine 2.07 H (0.66-1.25) mg/dL Glucose 341 H (74-99) mg/dL POC Glucose (mg/dL) (75-99) mg/dL Plasma Lactic Acid Sebastian (0.7-2.0) mmol/L Calcium (8.4-10.2) mg/dL AST 325 H (17-59) U/L ALT 266 H (4-49) U/L Ammonia (<30) umol/L Creatine Kinase 485 H (55-170) U/L Troponin I 0.047 H* (0.000-0.034) ng/mL Total Protein 6.0 L (6.3-8.2) g/dL Albumin 3.4 L (3.5-5.0) g/dL Urine Protein (Negative) Urine RBC (0-5) /hpf Urine WBC (0-5) /hpf Urine Mucus (None) /hpf Urine Opiates Screen (NotDetected) Ur Amphetamines Screen (NotDetected) U Methamphetamines Scrn (NotDetected) U Benzodiazepines Scrn (NotDetected) Urine Cocaine Screen (NotDetected) U Marijuana (THC) Screen (NotDetected) 11/29/20 11/29/20 11/29/20 Range/Units 10:11 12:46 13:41 WBC (3.8-10.6) k/uL MCV (80.0-100.0) fL MCHC (31.0-37.0) g/dL Neutrophils # (Manual) (1.3-7.7) k/uL Lymphocytes # (Manual) (1.0-4.8) k/uL Metamyelocytes # (Man) (0) k/uL Myelocytes # (Manual) (0) k/uL APTT (22.0-30.0) sec ABG pH <6.80 L* (7.35-7.45) ABG pCO2 89 H* (35-45) mmHg ABG pO2 185 H (83-108) mmHg ABG HCO3 11 L (21-25) mmol/L ABG Total CO2 14 L (19-24) mmol/L ABG O2 Saturation (94-97) % Sodium (137-145) mmol/L Potassium (3.5-5.1) mmol/L Chloride (98-107) mmol/L Carbon Dioxide (22-30) mmol/L BUN (9-20) mg/dL Creatinine (0.66-1.25) mg/dL Glucose (74-99) mg/dL POC Glucose (mg/dL) (75-99) mg/dL Plasma Lactic Acid Sebastian (0.7-2.0) mmol/L Calcium (8.4-10.2) mg/dL AST (17-59) U/L ALT (4-49) U/L Ammonia 55 H (<30) umol/L Creatine Kinase (55-170) U/L Troponin I 0.826 H* (0.000-0.034) ng/mL Total Protein (6.3-8.2) g/dL Albumin (3.5-5.0) g/dL Urine Protein (Negative) Urine RBC (0-5) /hpf Urine WBC (0-5) /hpf Urine Mucus (None) /hpf Urine Opiates Screen (NotDetected) Ur Amphetamines Screen (NotDetected) U Methamphetamines Scrn (NotDetected) U Benzodiazepines Scrn (NotDetected) Urine Cocaine Screen (NotDetected) U Marijuana (THC) Screen (NotDetected) 11/29/20 11/30/20 11/30/20 Range/Units 19:00 00:45 01:46 WBC (3.8-10.6) k/uL MCV (80.0-100.0) fL MCHC (31.0-37.0) g/dL Neutrophils # (Manual) (1.3-7.7) k/uL Lymphocytes # (Manual) (1.0-4.8) k/uL Metamyelocytes # (Man) (0) k/uL Myelocytes # (Manual) (0) k/uL APTT (22.0-30.0) sec ABG pH (7.35-7.45) ABG pCO2 (35-45) mmHg ABG pO2 (83-108) mmHg ABG HCO3 (21-25) mmol/L ABG Total CO2 (19-24) mmol/L ABG O2 Saturation (94-97) % Sodium 135 L (137-145) mmol/L Potassium (3.5-5.1) mmol/L Chloride (98-107) mmol/L Carbon Dioxide (22-30) mmol/L BUN (9-20) mg/dL Creatinine (0.66-1.25) mg/dL Glucose (74-99) mg/dL POC Glucose (mg/dL) 161 H (75-99) mg/dL Plasma Lactic Acid Sebastian (0.7-2.0) mmol/L Calcium (8.4-10.2) mg/dL AST (17-59) U/L ALT (4-49) U/L Ammonia (<30) umol/L Creatine Kinase (55-170) U/L Troponin I 7.200 H* (0.000-0.034) ng/mL Total Protein (6.3-8.2) g/dL Albumin (3.5-5.0) g/dL Urine Protein (Negative) Urine RBC (0-5) /hpf Urine WBC (0-5) /hpf Urine Mucus (None) /hpf Urine Opiates Screen (NotDetected) Ur Amphetamines Screen (NotDetected) U Methamphetamines Scrn (NotDetected) U Benzodiazepines Scrn (NotDetected) Urine Cocaine Screen (NotDetected) U Marijuana (THC) Screen (NotDetected) 11/30/20 11/30/20 11/30/20 Range/Units 03:25 03:45 04:30 WBC 14.5 H (3.8-10.6) k/uL MCV (80.0-100.0) fL MCHC (31.0-37.0) g/dL Neutrophils # (Manual) 11.60 H (1.3-7.7) k/uL Lymphocytes # (Manual) (1.0-4.8) k/uL Metamyelocytes # (Man) 0.44 H (0) k/uL Myelocytes # (Manual) 0.15 H (0) k/uL APTT (22.0-30.0) sec ABG pH (7.35-7.45) ABG pCO2 (35-45) mmHg ABG pO2 (83-108) mmHg ABG HCO3 (21-25) mmol/L ABG Total CO2 (19-24) mmol/L ABG O2 Saturation (94-97) % Sodium (137-145) mmol/L Potassium (3.5-5.1) mmol/L Chloride 114 H (98-107) mmol/L Carbon Dioxide 12 L (22-30) mmol/L BUN 27 H (9-20) mg/dL Creatinine 2.99 H (0.66-1.25) mg/dL Glucose 159 H (74-99) mg/dL POC Glucose (mg/dL) (75-99) mg/dL Plasma Lactic Acid Sebastian 10.7 H* (0.7-2.0) mmol/L Calcium 7.7 L (8.4-10.2) mg/dL AST (17-59) U/L ALT (4-49) U/L Ammonia (<30) umol/L Creatine Kinase (55-170) U/L Troponin I (0.000-0.034) ng/mL Total Protein (6.3-8.2) g/dL Albumin (3.5-5.0) g/dL Urine Protein (Negative) Urine RBC (0-5) /hpf Urine WBC (0-5) /hpf Urine Mucus (None) /hpf Urine Opiates Screen (NotDetected) Ur Amphetamines Screen (NotDetected) U Methamphetamines Scrn (NotDetected) U Benzodiazepines Scrn (NotDetected) Urine Cocaine Screen (NotDetected) U Marijuana (THC) Screen (NotDetected) 11/30/20 11/30/20 Range/Units 04:50 06:03 WBC (3.8-10.6) k/uL MCV (80.0-100.0) fL MCHC (31.0-37.0) g/dL Neutrophils # (Manual) (1.3-7.7) k/uL Lymphocytes # (Manual) (1.0-4.8) k/uL Metamyelocytes # (Man) (0) k/uL Myelocytes # (Manual) (0) k/uL APTT (22.0-30.0) sec ABG pH 7.10 L* (7.35-7.45) ABG pCO2 (35-45) mmHg ABG pO2 156 H (83-108) mmHg ABG HCO3 12 L (21-25) mmol/L ABG Total CO2 13 L (19-24) mmol/L ABG O2 Saturation 98.8 H (94-97) % Sodium (137-145) mmol/L Potassium (3.5-5.1) mmol/L Chloride (98-107) mmol/L Carbon Dioxide (22-30) mmol/L BUN (9-20) mg/dL Creatinine (0.66-1.25) mg/dL Glucose (74-99) mg/dL POC Glucose (mg/dL) 159 H (75-99) mg/dL Plasma Lactic Acid Sebastian (0.7-2.0) mmol/L Calcium (8.4-10.2) mg/dL AST (17-59) U/L ALT (4-49) U/L Ammonia (<30) umol/L Creatine Kinase (55-170) U/L Troponin I (0.000-0.034) ng/mL Total Protein (6.3-8.2) g/dL Albumin (3.5-5.0) g/dL Urine Protein (Negative) Urine RBC (0-5) /hpf Urine WBC (0-5) /hpf Urine Mucus (None) /hpf Urine Opiates Screen (NotDetected) Ur Amphetamines Screen (NotDetected) U Methamphetamines Scrn (NotDetected) U Benzodiazepines Scrn (NotDetected) Urine Cocaine Screen (NotDetected) U Marijuana (THC) Screen (NotDetected) Microbiology - Last 24 Hours (Table) 11/29/20 10:16 Gram Stain - Preliminary Sputum Sputum Culture - Preliminary 11/29/20 12:46 Blood Culture - Final Blood 11/29/20 10:00 Urine Culture - Preliminary Urine,Voided Assessment and Plan Assessment: * Anoxic brain injury due to prolonged cardiac arrest (at least 30 minutes). Cardiac arrest due to polysubstance use. No on any sedation * Severe Global cerebral vasogenic edema due to above * Polysubstance abuse (UDS positive for positive for opiates, amphetamine, methamphetamine, benzodiazepine, cocaine) since age 17 years old per family * Has some component of toxic-metabolic encephalopathy due to above (slight elevated ammonia and acute kidney insuffiency) * Elevated liver function tests likely liver shock from cardiac arrest * Acute kidney insufficiency * Hypothermic due Likely #1 * Acute hypoxic respiratory failure and is intubated on a mechanical ventilation * Severe metabolic acidosis * Troponin leak * History of alcohol use Plan: I will give another loading dose of mannitol. Continue 3% hypertonic saline 50cc/hour. Current Sodium 143. Goal Na is 145-155. Q4 hour sodium checks. CT head is ordered by the ICU team and agree with that. Continue on prophylactically Keppra 750mg IV every 12 hours. Q1 hours neuro-checks. Continue Thiamine 100mg daily IV. Will defer correction of ammonia to the primary and ICU team. We'll defer the rest of the medical management to the primary and ICU team. Patient's prognosis appears very poor because of the prolonged cardiac arrest, significant cerebral edema and neurological exam (has only brainstem reflex: breathing over vent and pupils are slugghishly reactive to light). The plan is discussed with the patient parents (who are bedside). I personally showed them CT head, exam was performed while they were in room and explained to them my neurological assessment. They want to pursue with getting CT head and then they will notify us how they want to pursue. UPDATE: She had a repeat CT of the head and is reported as no acute intracranial hemorrhage, mass effect or midline shift is seen. However there are new areas of low attenuation involving bilateral basilar ganglia and thalamus suspicious for acute ischemia. Recommend follow-up MRI. I personally reviewed that the CT of the head and I do agree there is the basal ganglia and the the thalamus which seen suspicious for acute ischemia. I personally spoke with the reading radiologist (Dr. Lino) regarding the global cerebral edema on the initial CT of the head and he agreed and also agreed with improvement on today's repeat CT head. He stated he will notify Dr. Camarillo to update note. Start the patient on aspirin 300 mg suppository daily and Lipitor 40 mg daily at bedtime for secondary stroke prophylaxis. Ordered lipid panel and the carotid duplex. Repeat EEG today since was told had facial twitching: Has burst suppression. Severe encephalopathy. Because of burst suppression: I ordered 2mg Ativan once and in addition to Keppra 750mg bid, loaded with Depakote 1gm once and started on Depakote 500mg every 12 hours. Notified the nurse to go down on 3% hypertonic saline from 50cc/hr to 30cc/hr and if his sodium is 149 or 150 to turn off hypertonic and will revaluate sodium (His cerebral edema has improved on this image compared to initial one) Update the patient family and they stated they will give him more time. They do not want to pursue with transfer and want to continue his care in our facility. Francis Ho MD Neuro-Hospitalist Time with Patient: Greater than 30
--- NOTE | 2020-11-30 09:45 | ECHOF ---
Referral Reason:cardiac arrest MEASUREMENTS -------- HEIGHT: 182.9 cm WEIGHT: 90.7 kg BP: 148/91 IVSd: 1.1 cm (0.6 - 1.1) LVIDd: 4.4 cm (3.9 - 5.3) LVPWd: 1.3 cm (0.6 - 1.1) IVSs: 1.5 cm LVIDs: 3.4 cm LVPWs: 1.6 cm Ao Diam: 3.1 cm (2.0 - 3.7) AV Cusp: 1.5 cm (1.5 - 2.6) MV EXCURSION: 23.459 mm (> 18.000) MV EF SLOPE: 182 mm/s (70 - 150) EPSS: 0.4 cm MV E Stan: 0.81 m/s MV DecT: 135 ms MV A Stan: 0.58 m/s MV E/A Ratio: 1.40 RAP: 5.00 mmHg RVSP: 14.43 mmHg FINDINGS -------- Sinus rhythm. This was a technically difficult study with suboptimal apical views. Pt. on a vent. The left ventricular size is normal. There is mild concentric left ventricular hypertrophy. Overa ll left ventricular systolic function is mildly impaired with, an EF between 45 - 50 %. The right ventricle is normal in size. Normal LA size by volume 22+/-6 ml/m2. The right atrial size is normal. 5.0mg of Lumason was utilized for enhancement of images Interatrial and interventricular septum intact. There is no evidence of aortic regurgitation. There is no evidence of aortic stenosis. No mitral regurgitation. Mild tricuspid regurgitation present. There is no evidence of pulmonary hypertension. The right v entricular systolic pressure, as measured by Doppler, is 14.43mmHg. There is no pulmonic regurgitation present. The aortic root size is normal. There is no pericardial effusion. CONCLUSIONS -------- 1. The left ventricular size is normal. 2. There is mild concentric left ventricular hypertrophy. 3. Overall left ventricular systolic function is mildly impaired with, an EF between 45 - 50 %. 4. Mild tricuspid regurgitation present. TOPOGRAPHICAL ENGINEER: Edith Mujica, [facility]
[2020-11-30] MEDS: ENOXAPARIN 40 MG/0.4 ML SYRINGE SQ SCH (09:58)
[2020-11-30] MEDS: THIAMINE 100 MG/ML 2 ML VIAL IVP SCH (09:59)
[2020-11-30] MEDS: PANTOPRAZOLE 40 MG/10 ML VIAL IVP SCH (09:59)
--- NOTE | 2020-11-30 10:55 | P.CRDCN ---
History of Present Illness History of present illness: This is Dr. Jackson dictating a consult on this patient The patient was interviewed and examined IMPRESSION / ASSESSMENT: Polysubstance abuse resulting in unresponsiveness and cardiac arrest Prolonged resuscitation. Mild LV dysfunction Sinus tachycardia at this time, patient on high-dose pressors PLAN: Withdrawal the dose of pressures gradually as long as blood pressure control related to minimize sinus tachycardia PH 7.1, lactate 8.9 Await full neurologic recovery and extubation No other cardiac recommendations at this point Prognosis poor We will sign off HPI 35-year-old male patient presented status post cardiac arrest following polysubstance abuse. He was unresponsive and pulseless when EMS arrived. CPR was initiated. 6 rounds of epinephrine and 2 mg of Narcan He had 35 minutes of CPR. He was intubated in the field He is completely unresponsive in the ER Pupils are fixed and dilated Currently the patient is hypotensive on pressors with sinus tachycardia Intubated unresponsive ROS: No fever chills or rigors, no cough, phlegm or expectoration, no nausea, vomiting or diarrhea, no hematuria, dysuria, no musculoskeletal complaints, no strokes or seizures, no skin lesions. EXAMINATION: REVIEW OF LABS, ECG & MEDICAL DATA twelve-lead EKG showed atrial fibrillation with heart rate [address] segment depression V4-V6 and in the inferior leads 2-D echo shows ejection fraction 45-50% PH 7.1 Electrolytes normal BUN 27 and creatinine 2.99 Lactate 8.9 Past Medical History Past Medical History: No Reported History History of Any Multi-Drug Resistant Organisms: None Reported Past Surgical History: No Surgical Hx Reported Past Anesthesia/Blood Transfusion Reactions: No Reported Reaction Past Psychological History: No Psychological Hx Reported Smoking Status: Current every day smoker Past Alcohol Use History: None Reported Past Drug Use History: Heroin, IV Drug Use - Past Family History Father Family Medical History: Coronary Artery Disease (CAD), Myocardial Infarction ([place]) Mother Family Medical History: Diabetes Mellitus, Hypertension Medications and Allergies Home Medications Medication Instructions Recorded Confirmed Type Unable To Assess [Unable to Assess] 11/29/20 11/29/20 History Allergies Allergy/AdvReac Type Severity Reaction Status Date / Time No Known Allergies Allergy Verified 11/29/20 09:26 Physical Exam Vitals: Vital Signs Temp Pulse Resp BP Pulse Ox 11/30/20 10:45 117 H 11/30/20 10:33 116 H 11/30/20 07:35 122 H 11/30/20 07:25 120 H 11/30/20 07:00 122 H 28 H 122/75 98 11/30/20 06:30 123 H 30 H 113/76 99 11/30/20 06:00 99.5 F 121 H 28 H 123/76 98 11/30/20 05:30 121 H 28 H 120/67 99 11/30/20 05:00 99.5 F 120 H 28 H 118/70 98 11/30/20 04:30 118 H 28 H 125/73 98 11/30/20 04:00 99.1 F 117 H 28 H 126/77 98 11/30/20 03:30 115 H 28 H 137/78 99 11/30/20 03:00 98.6 F 114 H 28 H 133/84 98 11/30/20 02:30 114 H 28 H 148/87 99 11/30/20 02:00 98.1 F 113 H 12 141/89 99 11/30/20 01:30 112 H 28 H 141/103 97 11/30/20 01:00 97.5 F L 114 H 28 H 151/100 97 11/30/20 00:50 112 H 149/102 98 11/30/20 00:42 112 H 46 H 11/29/20 23:46 97.5 F L 112 H 26 H 140/99 100 11/29/20 23:00 97.3 F L 103 H 26 H 122/90 100 11/29/20 22:00 97.2 F L 112 H 28 H 146/104 99 11/29/20 21:00 97.0 F L 114 H 26 H 139/104 99 11/29/20 20:43 104 H 11/29/20 20:28 103 H 11/29/20 20:00 96.6 F L 105 H 20 143/105 98 11/29/20 19:27 96.1 F L 103 H 20 141/103 98 11/29/20 18:36 95.5 F L 101 H 20 128/90 95 11/29/20 17:43 93.2 F L 99 20 121/89 93 L 11/29/20 16:56 96 20 105/83 92 L 11/29/20 16:15 91.8 F L 92 28 H 108/98 91 L 11/29/20 15:10 88 11/29/20 15:07 87 28 H 129/90 86 L 11/29/20 15:00 83 24 139/67 94 L 11/29/20 14:01 91.2 F L 92 28 H 120/63 99 11/29/20 13:00 91.2 F L 96 28 H 151/89 100 11/29/20 11:54 90.1 F L 98 28 H 135/64 99 11/29/20 11:00 96 20 120/58 99 Intake and Output 11/29/20 11/30/20 11/30/20 22:59 06:59 14:59 Intake Total 241.495 460.706 50 Output Total 350 830 40 Balance -108.505 -369.294 10 Intake: IV 250 50 Sodium Chloride 3%( 250 50 Hypertonic) 500 ml @ 50 mls/hr IV .Q10H [facility] Rx#: [id number] Intake, IV Titration 241.495 210.706 Amount Norepinephrine 32 mg In 241.495 210.706 Sodium Chloride 0.9% 218 ml @ 0.05 MCG/KG/MIN 2. 126 mls/hr IV .Q24H [facility] Rx#:[id number] Output: Urine 350 830 40 Other: Voiding Method Indwelling Catheter Weight 84 kg Results 11/30/20 03:25 11/30/20 08:52 Cardiac Enzymes 11/29/20 11/29/20 11/30/20 Range/Units 10:01 12:46 01:46 AST 325 H (17-59) U/L Troponin I 0.826 H* 7.200 H* (0.000-0.034) ng/mL CBC 11/29/20 11/30/20 Range/Units 10:01 03:25 WBC 8.9 14.5 H (3.8-10.6) k/uL RBC 4.79 5.64 (4.30-5.90) m/uL Hgb 14.4 16.4 (13.0-17.5) gm/dL Hct 48.4 52.1 (39.0-53.0) % Plt Count 342 358 (150-450) k/uL Comprehensive Metabolic Panel 11/29/20 11/29/20 11/29/20 Range/Units 10:01 19:00 21:16 Sodium 134 L 135 L 137 (137-145) mmol/L Potassium 5.2 H (3.5-5.1) mmol/L Chloride 99 (98-107) mmol/L Carbon Dioxide 7 L* (22-30) mmol/L BUN 13 (9-20) mg/dL Creatinine 2.07 H (0.66-1.25) mg/dL Glucose 341 H (74-99) mg/dL Calcium 9.3 (8.4-10.2) mg/dL AST 325 H (17-59) U/L ALT 266 H (4-49) U/L Alkaline Phosphatase 95 (38-126) U/L Total Protein 6.0 L (6.3-8.2) g/dL Albumin 3.4 L (3.5-5.0) g/dL 11/30/20 11/30/20 Range/Units 04:30 08:52 Sodium 143 146 H (137-145) mmol/L Potassium 4.5 (3.5-5.1) mmol/L Chloride 114 H (98-107) mmol/L Carbon Dioxide 12 L (22-30) mmol/L BUN 27 H (9-20) mg/dL Creatinine 2.99 H (0.66-1.25) mg/dL Glucose 159 H (74-99) mg/dL Calcium 7.7 L (8.4-10.2) mg/dL AST (17-59) U/L ALT (4-49) U/L Alkaline Phosphatase (38-126) U/L Total Protein (6.3-8.2) g/dL Albumin (3.5-5.0) g/dL Current Medications Generic Name Dose Route Start Last Admin Trade Name Freq PRN Reason Stop Dose Admin Albuterol/Ipratropium 3 ml 11/29/20 16:00 11/30/20 10:33 Ipratropium-Albuterol 3 Ml Neb INHALATION 3 ml RT-QID [facility] Administration Albuterol/Ipratropium 3 ml 11/29/20 12:03 Ipratropium-Albuterol 3 Ml Neb INHALATION RT-Q2H PRN Shortness Of Breath Or Wheezing Enoxaparin Sodium 40 mg 11/29/20 12:15 11/30/20 09:58 Enoxaparin 40 Mg/0.4 Ml Syringe SQ 40 mg DAILY [facility] Administration Piperacillin Sod/Tazobactam 100 mls @ 25 mls/hr 11/29/20 11:00 11/30/20 10:00 Sod 3.375 gm/ Sodium Chloride IVPB 25 mls/hr Q8H [facility] Administration Levetiracetam 750 mg/ Sodium 107.5 mls @ 400 mls/hr 11/29/20 21:00 11/29/20 21:37 Chloride IVPB 400 mls/hr Q12HR PINEDA Administration Sodium Chloride (Hypertonic) 500 mls @ 50 mls/hr 11/29/20 14:00 11/30/20 01:59 Saline 3% (Hypertonic) IV 11/30/20 14:01 50 mls/hr .Q10H PINEDA Administration Protocol Naloxone HCl 0.2 mg 11/29/20 11:04 Naloxone 0.4 Mg/Ml 1 Ml Vial IV Q2M PRN Opioid Reversal Pantoprazole Sodium 40 mg 11/29/20 12:15 11/30/20 09:59 Pantoprazole 40 Mg/10 Ml Vial IVP 40 mg DAILY PINEDA Administration Thiamine HCl 100 mg 11/29/20 13:45 11/30/20 09:59 Thiamine 100 Mg/Ml 2 Ml Vial IVP 100 mg DAILY PINEDA Administration Intake and Output 11/29/20 11/30/20 11/30/20 22:59 06:59 14:59 Intake Total 241.495 460.706 50 Output Total 350 830 40 Balance -108.505 -369.294 10 Intake: IV 250 50 Sodium Chloride 3%( 250 50 Hypertonic) 500 ml @ 50 mls/hr IV .Q10H PINEDA Rx#: [id number] Intake, IV Titration 241.495 210.706 Amount Norepinephrine 32 mg In 241.495 210.706 Sodium Chloride 0.9% 218 ml @ 0.05 MCG/KG/MIN 2. 126 mls/hr IV .Q24H ONE Rx#:[id number] Output: Urine 350 830 40 Other: Voiding Method Indwelling Catheter Weight 84 kg 11/30/20 03:25 11/30/20 08:52
--- NOTE | 2020-11-30 11:24 | CT ---
EXAMINATION TYPE: CT brain wo con DATE OF EXAM: 11/30/2020 COMPARISON: 11/29/2020 HISTORY: Mental status change CT DLP: 1106.4 mGycm. Automated Exposure Control for Dose Reduction was Utilized. TECHNIQUE: CT scan of the head is performed without contrast. FINDINGS: There is no acute intracranial hemorrhage, mass effect, or midline shift identified. The ventricles and sulci are within normal limits in size. ET and NG tube noted. There is low attenuatio n which is new in the region of the thalamus bilaterally suspicious for acute ischemia. Similar hector es seen in the basal ganglia. Report called to the patient's ICU nurse 11:20 AM 11/30/2020. Orbits are symmetric. Changes of chronic sinusitis. Craniocervical junction maintained. Sella turcica has a normal appearance. IMPRESSION: 1. No acute intracranial hemorrhage, mass effect, or midline shift is seen. However, there are new ar eas of low attenuation involving the bilateral basal ganglia and thalamus suspicious for acute ischem ia. Recommend follow-up MRI.
[2020-11-30 11:29] LABS: Glucose,Whole Blood 139 mg/dL (75-99)
[2020-11-30] MEDS ORDERED: VANCOMYCIN IV PER PHARMACY 1 EACH MISC MISCELLANE PRN (11:44)
--- NOTE | 2020-11-30 11:55 | P.PN ---
Subjective Progress Note Date: 11/30/20 Principal diagnosis: Cardiac arrest, polysubstance overdose, heroin overdose 35-year-old male patient was found unresponsive by EMS. There is history of polysubstance abuse. The patient was coded for a total of 30 minutes on the scene getting worse a total of 6 doses of epinephrine was given and the patient was also given CPR. The patient was intubated on the scene and following that he was brought in to the emergency department at [facility]. He arrived completely unresponsive with fixed dilated pupils. He was hypothermic. He was also hypotensive. Immediately was placed on norepinephrine infusion which is currently infusing at 0.5 mcg/kg per minute. Urine output is minimal at this point in time. The patient has hypothermic with a temperature of 32C at this point in time is on a mechanical ventilator with a rate of 1 with a rate with a tidal volume of 500 and FiO2 of 1% with a PEEP of 5. Blood gases showed a pH of 6.8 with a pCO2 of 89 and pO2 of 185. Coagulation profile was normal. Initial troponin was 0.04. The urine test is positive for amphetamine, methamphetamine, benzodiazepine, and marijuana and cocaine. He was also positive for opiates. UA is showing 14 WBCs, +1 protein, the CBC showing a white cell count of 8.2 hemoglobin 14.4. Post intubation chest x-ray shows an extensive right lung consolidation consistent with an aspiration pneumonia. ET tube was deviated trachea and had to be pulled back by about 1 cm. Patient is covered with IV Zosyn. Currently on pressors with high-dose norepinephrine infusion. Triple lumen catheter was inserted in his right femoral vein by emergency services. He remains completely unresponsive. He has not received any sedation. He is not breathing above the vent. Not to getting the respirator. Pupils are fixed dilated. No cough reflex. No gag reflex. No corneal reflex. No other history is available. The family is unknown and police is trying to locate family members. On today's evaluation on 11/30/2020 patient seen in the intensive care unit. He is intubated, on assist control mode of ventilation with a rate of 28, tidal vitamins 500, PEEP of 10 and FiO2 of 80%. This morning's blood gas showed pO2 of 156, pCO2 of 38, and pH of 7.10, this was done on 100% FiO2 and this has since been dropped down to 80%. Patient is currently on 3% hypertonic saline at 50 ML per hour, and norepinephrine infusion at 0.55 mics per kilo per minute, which is approximately 46 mics per minute. Today's chest x-ray has been reviewed showing progression of diffuse infiltrates involving the right lung, and stable left lower lobe infiltrate. Renal profile has worsened on today's labs creatinine is up to 2.9, and BUN is 27. Lara catheter is in place, patient is producing urine in the order of 30-50 ML per hour. He is on Zosyn for aspiration pneumonia, sputum culture has been sent showing rare PMNs, a few epithelial cells, and a few gram-positive cocci. Final cultures pending, blood cultures show no growth, urine culture has shown no growth. Patient has a low-grade fever this morning with a temp of 99.5F. He is in sinus mechanism, tachycardic with a rate of 133 BPM. His EEG showed background slowing suggestive of severe encephalopathy, however there was no evidence of focal slowing, epileptiform discharges or seizure activity. Repeat brain CT is pendin g this morning, admission brain CT showed no acute intracranial process. However computed tomography scan films were reviewed by neurologist of severe loss of spain to white matter junction, and decreased ventricle size throughout related to cerebral edema. Patient remains on hypertonic saline running at 50 ML per hour. This morning's labs have been reviewed, his white blood cell count slightly increased and is up to 14.5 on today's labs, hemoglobin is 16.4, platelet count 358, sodium is 143, potassium is 4.5, chloride is 114, CO2 is 12, B1 is 27, creatinine is 2.9, lactic acid is 10.7, troponins were elevated to 0.047, 0.826, and 7.2. His liver enzymes also came back elevated on yesterday's labs with AST 325, ALT 266, alk phos of 95, CPK was 485. His urine drug screen was positive for opiates, amphetamines, methamphetamines, benzodiazepines, cocaine, and marijuana, serum alcohol level is less than 10. Patient remains completely unresponsive, he has not received any sedation since admission, he breathes over the vent, his pupils are fixed and pinpoint. He slightly withdrew from deep painful stimuli after an attempt to elicit a Babinski response.. There is no gag or cough reflex. Negative Babinski, hypoactive deep tendon reflexes. Patient's parents are at the bedside stating that this is one of multiple overdose episodes. Most recently patient had a overdose in September 2020 however did not require intubation or mechanical ventilator support at that time. He received Narcan and his opiate overdose was successfully reversed at the time, patient was hospitalized up [place]. Today repeat brain CT is pending, neurology Lovenox closely following, a request was sent for transfer to [facility] per neurology recommendations. Objective - Vital Signs Vital signs: Vital Signs Temp 99.5 F 11/30/20 06:00 Pulse 122 H 11/30/20 07:35 Resp 28 H 11/30/20 07:00 BP 122/75 11/30/20 07:00 Pulse Ox 98 11/30/20 07:00 Intake & Output 11/29/20 11/30/20 11/30/20 18:59 06:59 18:59 Intake Total 250.000 460.706 50 Output Total 1650 830 40 Balance -1400.000 -369.294 10 Weight 90.718 kg 84 kg Intake: IV 250 50 Sodium Chloride 3%( 250 50 Hypertonic) 500 ml @ 50 mls/hr IV .Q10H [facility] Rx#: [id number] Intake, IV Titration 250.000 210.706 Amount Norepinephrine 32 mg In 250.000 210.706 Sodium Chloride 0.9% 218 ml @ 0.05 MCG/KG/MIN 2. 126 mls/hr IV .Q24H [facility] Rx#:[id number] Output: Urine 1650 830 40 Other: Voiding Method Indwelling Catheter - Exam GENERAL EXAM: Unresponsive, intubated on assist control mode of ventilation, 35-year-old white male, with FiO2 of 80%, and PEEP of 10 comfortable in no apparent distress. Currently on no sedation, slightly withdraws from painful stimuli, breathes over the vent, no cough or gag reflex. absent corneal reflex HEAD: Normocephalic/atraumatic. EYES: Normal reaction of pupils, equal size. Conjunctiva pink, sclera white. NOSE: Clear with pink turbinates. THROAT: No erythema or exudates. NECK: No masses, no JVD, no thyroid enlargement, no adenopathy. CHEST: No chest wall deformity. Symmetrical expansion. LUNGS: Equal air entry with diffuse rhonchi CVS: Regular rate and rhythm, normal S1 and S2, no gallops, no murmurs, no rubs ABDOMEN: Soft, nontender. No hepatosplenomegaly, normal bowel sounds, no guarding or rigidity. EXTREMITIES: No clubbing, no edema, no cyanosis, 2+ pulses and upper and lower extremities. MUSCULOSKELETAL: Muscle strength and tone normal. SPINE: No scoliosis or deformity SKIN: No rashes, mottling noted of the skin bilateral lower extremities, knees, CENTRAL NERVOUS SYSTEM: Unresponsive, pupils are pinpoint midline, and fixed, negative corneal reflex negative Babinski, DTRs are hypoactive, slightly withdraws from painful stimuli, no gag or cough reflex. - Labs CBC & Chem 7: 11/30/20 03:25 11/30/20 08:52 Labs: Abnormal Lab Results - Last 24 Hours (Table) 11/29/20 11/29/20 11/29/20 Range/Units 09:31 10:00 10:01 WBC (3.8-10.6) k/uL MCV 101.0 H (80.0-100.0) fL MCHC 29.8 L (31.0-37.0) g/dL Neutrophils # (Manual) (1.3-7.7) k/uL Lymphocytes # (Manual) 5.25 H (1.0-4.8) k/uL Metamyelocytes # (Man) 0.09 H (0) k/uL Myelocytes # (Manual) 0.09 H (0) k/uL APTT (22.0-30.0) sec ABG pH (7.35-7.45) ABG pCO2 (35-45) mmHg ABG pO2 (83-108) mmHg ABG HCO3 (21-25) mmol/L ABG Total CO2 (19-24) mmol/L ABG O2 Saturation (94-97) % Sodium (137-145) mmol/L Potassium (3.5-5.1) mmol/L Chloride (98-107) mmol/L Carbon Dioxide (22-30) mmol/L BUN (9-20) mg/dL Creatinine (0.66-1.25) mg/dL Glucose (74-99) mg/dL POC Glucose (mg/dL) 69 L (75-99) mg/dL Plasma Lactic Acid Sebastian (0.7-2.0) mmol/L Calcium (8.4-10.2) mg/dL AST (17-59) U/L ALT (4-49) U/L Ammonia (<30) umol/L Creatine Kinase (55-170) U/L Troponin I (0.000-0.034) ng/mL Total Protein (6.3-8.2) g/dL Albumin (3.5-5.0) g/dL Urine Protein 1+ H (Negative) Urine RBC 9 H (0-5) /hpf Urine WBC 14 H (0-5) /hpf Urine Mucus Rare H (None) /hpf Urine Opiates Screen Detected H (NotDetected) Ur Amphetamines Screen Detected H (NotDetected) U Methamphetamines Scrn Detected H (NotDetected) U Benzodiazepines Scrn Detected H (NotDetected) Urine Cocaine Screen Detected H (NotDetected) U Marijuana (THC) Screen Detected H (NotDetected) 11/29/20 11/29/20 11/29/20 Range/Units 10:01 10:01 10:01 WBC (3.8-10.6) k/uL MCV (80.0-100.0) fL MCHC (31.0-37.0) g/dL Neutrophils # (Manual) (1.3-7.7) k/uL Lymphocytes # (Manual) (1.0-4.8) k/uL Metamyelocytes # (Man) (0) k/uL Myelocytes # (Manual) (0) k/uL APTT 45.0 H (22.0-30.0) sec ABG pH (7.35-7.45) ABG pCO2 (35-45) mmHg ABG pO2 (83-108) mmHg ABG HCO3 (21-25) mmol/L ABG Total CO2 (19-24) mmol/L ABG O2 Saturation (94-97) % Sodium 134 L (137-145) mmol/L Potassium 5.2 H (3.5-5.1) mmol/L Chloride (98-107) mmol/L Carbon Dioxide 7 L* (22-30) mmol/L BUN (9-20) mg/dL Creatinine 2.07 H (0.66-1.25) mg/dL Glucose 341 H (74-99) mg/dL POC Glucose (mg/dL) (75-99) mg/dL Plasma Lactic Acid Sebastian (0.7-2.0) mmol/L Calcium (8.4-10.2) mg/dL AST 325 H (17-59) U/L ALT 266 H (4-49) U/L Ammonia (<30) umol/L Creatine Kinase 485 H (55-170) U/L Troponin I 0.047 H* (0.000-0.034) ng/mL Total Protein 6.0 L (6.3-8.2) g/dL Albumin 3.4 L (3.5-5.0) g/dL Urine Protein (Negative) Urine RBC (0-5) /hpf Urine WBC (0-5) /hpf Urine Mucus (None) /hpf Urine Opiates Screen (NotDetected) Ur Amphetamines Screen (NotDetected) U Methamphetamines Scrn (NotDetected) U Benzodiazepines Scrn (NotDetected) Urine Cocaine Screen (NotDetected) U Marijuana (THC) Screen (NotDetected) 11/29/20 11/29/20 11/29/20 Range/Units 10:11 12:46 13:41 WBC (3.8-10.6) k/uL MCV (80.0-100.0) fL MCHC (31.0-37.0) g/dL Neutrophils # (Manual) (1.3-7.7) k/uL Lymphocytes # (Manual) (1.0-4.8) k/uL Metamyelocytes # (Man) (0) k/uL Myelocytes # (Manual) (0) k/uL APTT (22.0-30.0) sec ABG pH <6.80 L* (7.35-7.45) ABG pCO2 89 H* (35-45) mmHg ABG pO2 185 H (83-108) mmHg ABG HCO3 11 L (21-25) mmol/L ABG Total CO2 14 L (19-24) mmol/L ABG O2 Saturation (94-97) % Sodium (137-145) mmol/L Potassium (3.5-5.1) mmol/L Chloride (98-107) mmol/L Carbon Dioxide (22-30) mmol/L BUN (9-20) mg/dL Creatinine (0.66-1.25) mg/dL Glucose (74-99) mg/dL POC Glucose (mg/dL) (75-99) mg/dL Plasma Lactic Acid Sebastian (0.7-2.0) mmol/L Calcium (8.4-10.2) mg/dL AST (17-59) U/L ALT (4-49) U/L Ammonia 55 H (<30) umol/L Creatine Kinase (55-170) U/L Troponin I 0.826 H* (0.000-0.034) ng/mL Total Protein (6.3-8.2) g/dL Albumin (3.5-5.0) g/dL Urine Protein (Negative) Urine RBC (0-5) /hpf Urine WBC (0-5) /hpf Urine Mucus (None) /hpf Urine Opiates Screen (NotDetected) Ur Amphetamines Screen (NotDetected) U Methamphetamines Scrn (NotDetected) U Benzodiazepines Scrn (NotDetected) Urine Cocaine Screen (NotDetected) U Marijuana (THC) Screen (NotDetected) 11/29/20 11/30/20 11/30/20 Range/Units 19:00 00:45 01:46 WBC (3.8-10.6) k/uL MCV (80.0-100.0) fL MCHC (31.0-37.0) g/dL Neutrophils # (Manual) (1.3-7.7) k/uL Lymphocytes # (Manual) (1.0-4.8) k/uL Metamyelocytes # (Man) (0) k/uL Myelocytes # (Manual) (0) k/uL APTT (22.0-30.0) sec ABG pH (7.35-7.45) ABG pCO2 (35-45) mmHg ABG pO2 (83-108) mmHg ABG HCO3 (21-25) mmol/L ABG Total CO2 (19-24) mmol/L ABG O2 Saturation (94-97) % Sodium 135 L (137-145) mmol/L Potassium (3.5-5.1) mmol/L Chloride (98-107) mmol/L Carbon Dioxide (22-30) mmol/L BUN (9-20) mg/dL Creatinine (0.66-1.25) mg/dL Glucose (74-99) mg/dL POC Glucose (mg/dL) 161 H (75-99) mg/dL Plasma Lactic Acid Sebastian (0.7-2.0) mmol/L Calcium (8.4-10.2) mg/dL AST (17-59) U/L ALT (4-49) U/L Ammonia (<30) umol/L Creatine Kinase (55-170) U/L Troponin I 7.200 H* (0.000-0.034) ng/mL Total Protein (6.3-8.2) g/dL Albumin (3.5-5.0) g/dL Urine Protein (Negative) Urine RBC (0-5) /hpf Urine WBC (0-5) /hpf Urine Mucus (None) /hpf Urine Opiates Screen (NotDetected) Ur Amphetamines Screen (NotDetected) U Methamphetamines Scrn (NotDetected) U Benzodiazepines Scrn (NotDetected) Urine Cocaine Screen (NotDetected) U Marijuana (THC) Screen (NotDetected) 11/30/20 11/30/20 11/30/20 Range/Units 03:25 03:45 04:30 WBC 14.5 H (3.8-10.6) k/uL MCV (80.0-100.0) fL MCHC (31.0-37.0) g/dL Neutrophils # (Manual) 11.60 H (1.3-7.7) k/uL Lymphocytes # (Manual) (1.0-4.8) k/uL Metamyelocytes # (Man) 0.44 H (0) k/uL Myelocytes # (Manual) 0.15 H (0) k/uL APTT (22.0-30.0) sec ABG pH (7.35-7.45) ABG pCO2 (35-45) mmHg ABG pO2 (83-108) mmHg ABG HCO3 (21-25) mmol/L ABG Total CO2 (19-24) mmol/L ABG O2 Saturation (94-97) % Sodium (137-145) mmol/L Potassium (3.5-5.1) mmol/L Chloride 114 H (98-107) mmol/L Carbon Dioxide 12 L (22-30) mmol/L BUN 27 H (9-20) mg/dL Creatinine 2.99 H (0.66-1.25) mg/dL Glucose 159 H (74-99) mg/dL POC Glucose (mg/dL) (75-99) mg/dL Plasma Lactic Acid Sebastian 10.7 H* (0.7-2.0) mmol/L Calcium 7.7 L (8.4-10.2) mg/dL AST (17-59) U/L ALT (4-49) U/L Ammonia (<30) umol/L Creatine Kinase (55-170) U/L Troponin I (0.000-0.034) ng/mL Total Protein (6.3-8.2) g/dL Albumin (3.5-5.0) g/dL Urine Protein (Negative) Urine RBC (0-5) /hpf Urine WBC (0-5) /hpf Urine Mucus (None) /hpf Urine Opiates Screen (NotDetected) Ur Amphetamines Screen (NotDetected) U Methamphetamines Scrn (NotDetected) U Benzodiazepines Scrn (NotDetected) Urine Cocaine Screen (NotDetected) U Marijuana (THC) Screen (NotDetected) 11/30/20 11/30/20 Range/Units 04:50 06:03 WBC (3.8-10.6) k/uL MCV (80.0-100.0) fL MCHC (31.0-37.0) g/dL Neutrophils # (Manual) (1.3-7.7) k/uL Lymphocytes # (Manual) (1.0-4.8) k/uL Metamyelocytes # (Man) (0) k/uL Myelocytes # (Manual) (0) k/uL APTT (22.0-30.0) sec ABG pH 7.10 L* (7.35-7.45) ABG pCO2 (35-45) mmHg ABG pO2 156 H (83-108) mmHg ABG HCO3 12 L (21-25) mmol/L ABG Total CO2 13 L (19-24) mmol/L ABG O2 Saturation 98.8 H (94-97) % Sodium (137-145) mmol/L Potassium (3.5-5.1) mmol/L Chloride (98-107) mmol/L Carbon Dioxide (22-30) mmol/L BUN (9-20) mg/dL Creatinine (0.66-1.25) mg/dL Glucose (74-99) mg/dL POC Glucose (mg/dL) 159 H (75-99) mg/dL Plasma Lactic Acid Sebastian (0.7-2.0) mmol/L Calcium (8.4-10.2) mg/dL AST (17-59) U/L ALT (4-49) U/L Ammonia (<30) umol/L Creatine Kinase (55-170) U/L Troponin I (0.000-0.034) ng/mL Total Protein (6.3-8.2) g/dL Albumin (3.5-5.0) g/dL Urine Protein (Negative) Urine RBC (0-5) /hpf Urine WBC (0-5) /hpf Urine Mucus (None) /hpf Urine Opiates Screen (NotDetected) Ur Amphetamines Screen (NotDetected) U Methamphetamines Scrn (NotDetected) U Benzodiazepines Scrn (NotDetected) Urine Cocaine Screen (NotDetected) U Marijuana (THC) Screen (NotDetected) Microbiology - Last 24 Hours (Table) 11/29/20 10:16 Gram Stain - Preliminary Sputum Sputum Culture - Preliminary 11/29/20 12:46 Blood Culture - Final Blood 11/29/20 10:00 Urine Culture - Preliminary Urine,Voided Assessment and Plan Plan: Assessment: 1 Acute cardiac arrest with a prolonged down time estimated to be at least 30 minutes.. Clinically the patient is unresponsive has not received any sedation. Consider anoxic encephalopathy. Unfortunately, the neurologic exam is quite poor at this point in time without any brainstem reflexes. Nevertheless the patient's hypothermic and acidotic and a repeat examination is to be done once these metabolic derangements have recovered. CAT scan of the brain was negative. 2 Anoxic brain injury related to the above 3 gram pos bacteremia, on Zosyn and Vanco 4 polysubstance abuse positive for benzodiazepines, opiates, marijuana, cocaine and amphetamine and methamphetamine 5 acute hypoxic respiratory failure currently intubated on a mechanical ventilator 4 acute right lung pneumonia, extensive consolidation involving the right lung, consider aspiration 5 acute shock currently on high-dose pressors secondary to above 6 severe metabolic acidosis with a pH of 6.8. 7 troponin leak secondary to above 8 hypothermia secondary to above 9 multiple episodes of overdose in the past, hence report over 20 episodes of OD related to polysubstance abuse including heroin. Last episode was in September 2020 10 acute kidney injury related to ATN 11 history of hep C, untreated 12 elevated liver enzymes likely related to hypo-perfusion Plan: Continue weaning FiO2, currently down to 70% Today's chest x-ray has been reviewed showing slight progression in the appearance of right lung consolidation Continue current antibiotics, will add Vancomycin for positive cultures Still remains on high-dose vasopressor support Remains unresponsive, there is a concern for cerebral edema, and patient remains on hypertonic saline at 50 ML per hour EEG was reviewed, reported no seizures, but there is twitching noted on today's exam Continue Keppra Repeat EEG Case discussed with neurology Brain CT was reviewed Family at the bedside, prognosis is discussed Continue with supportive care for a day or two to see if there is any improvement in neurological function Prognosis at this time extremely poor and guarded I performed a history & physical examination of the patient and discussed their management with my nurse practitioner, Etelvina Peraza. I reviewed the nurse practitioner's note and agree with the documented findings and plan of care. Lung sounds are positive for diffuse wheezes throughout the lung armijo. The findings and the impression was discussed with the patient. I attest to the d ocumentation by the nurse practitioner. Time with Patient: Greater than 30
[2020-11-30] MEDS ORDERED: ATORVASTATIN 40 MG TAB PO STA (12:01)
[2020-11-30] MEDS: levETIRAcetam IV 750 MG in SODIUM CHLORIDE 0.9% 100 ML IVPB SCH ×2 (12:39→22:31)
[2020-11-30] MEDS: ASPIRIN 300 MG SUPP RECTAL SCH (12:40)
[2020-11-30] MEDS ORDERED: NOREPINEPHRINE 8 MG in SODIUM CHLORIDE 0.9% 250 ML IV SCH (12:45)
[2020-11-30] MEDS ORDERED: LORazepam 2 MG/ML INJ IV STA (16:03)
[2020-11-30] MEDS ORDERED: VALPROATE SODIUM 1,000 MG in SODIUM CHLORIDE 0.9% 50 ML IVPB ONE (16:04)
[2020-11-30] MEDS: VANCOMYCIN 1,500 MG in SODIUM CHLORIDE 0.9% 250 ML IVPB SCH (16:57)
[2020-11-30 18:00] LABS: Glucose,Whole Blood 127 mg/dL (75-99)
--- NOTE | 2020-11-30 18:22 | EEG ---
ELECTROENCEPHALOGRAM REPORT DATE OF SERVICE: 11/30/2020. CLINICAL HISTORY: This is a 35-year-old gentleman who presented to the emergency department after a prolonged cardiac arrest that continues to have altered mental status and has twitching-activity on the face. The video EEG is obtained to evaluate for seizure epileptiform activity. RELEVANT MEDICATION: Keppra. EEG TYPE: A routine 21 channel EEG is performed with video using the 10/20 electrode placement system. DESCRIPTION: The patient is intubated on a ventilator but is not on any sedation. The patient's background consists of burst suppression activity. During the burst activity it consists of nonrhythmic of moderate voltage of 3-4 hertz delta activity lasting between 4-7 seconds. While the diffuse suppression lasting between 7-8 seconds. There is no focal activity. ACTIVATION PROCEDURE: Photic stimulation and hyperventilation is not performed. CLINICAL INTERPRETATION: This is an abnormal routine EEG. The background is suggestive of severe encephalopathy. The burst suppression can be seen following hypoxic-ischemic injury or status epilepticus. Clinical correlation is recommended. MMANALI / RENALDO: [id number] / MTDD
[2020-11-30] MEDS ORDERED: SODIUM CHLORIDE 3%(HYPERTONIC) 500 ML IV SCH (19:15)
[2020-11-30] MEDS ORDERED: ACETAMINOPHEN IV (For NPO) 1,000 MG in EMPTY BAG 1 BAG IVPB ONE (20:00)
[2020-11-30] MEDS ORDERED: ATORVASTATIN 40 MG TAB PO SCH (21:00)
[2020-11-30] MEDS ORDERED: VALPROATE SODIUM 500 MG in SODIUM CHLORIDE 0.9% 50 ML IVPB SCH (21:00)
--- NOTE | 2020-11-30 21:03 | US ---
EXAMINATION TYPE: US carotid duplex BILAT DATE OF EXAM: 11/30/2020 COMPARISON: CLINICAL HISTORY: stroke. ICU patient. Unknown history. EXAM MEASUREMENTS: RIGHT: Peak Systolic Velocity (PSV) cm/sec ----- Right CCA: 189.3 ----- Right ICA: 164.2 ----- Right ECA: 133.8 ICA/CCA ratio: 0.9 RIGHT: End Diastole cm/sec ----- Right CCA: 22.0 ----- Right ICA: 13.7 ----- Right ECA: 13.6 LEFT: Peak Systolic Velocity (PSV) cm/sec ----- Left CCA: 186.5 ----- Left ICA: 114.3 ----- Left ECA: 197.6 ICA/CCA ratio: 0.6 LEFT: End Diastole cm/sec ----- Left CCA: 19.2 ----- Left ICA: 9.8 ----- Left ECA: 13.7 VERTEBRALS (direction of flow): Right Vertebral: Antegrade Left Vertebral: Antegrade Rhythm: Normal Multiple high velocities seen in bilateral CCA. No significant stenosis. No wall thickening. No oniel que seen. IMPRESSION: There is antegrade flow in the vertebral arteries. The images and measurements suggest 50-70% stenosi s in the common and internal carotid arteries bilaterally. NASCET criteria was used in interpretation of this exam? Criteria for Assigning % of Stenosis / Diameter reduction (Estimation based on the indirect measurements of the internal carotid artery velocities (ICA PSV). 1. Normal (no stenosis)=ICA PSV < 125 cm/s: ratio < 2.0: ICA EDV<40 cm/s. 2. Less than 50% stenosis=ICA PSV < 125 cm/s: ratio < 2.0: ICA EDV<40 cm/s. 3. 50 to 69% stenosis=ICA PSV of 125 to 230 cm/s: ration 2.0 ? 4.0: ICA EDV 40-100 cm/s. 4. Greater than 70% stenosis to near occlusion= ICA PSV > 230 cm/s: ratio > 4.0: ICA EDV > 100 cm/s. 5. Near occlusion= ICA PSV velocities may be low or undetectable: variable ratio and ICA EDV. 6. Total occlusion=unable to detect flow.
[2020-11-30] MEDS: NOREPINEPHRINE 32 MG in SODIUM CHLORIDE 0.9% 218 ML IV SCH (21:23)
[2020-11-30] MEDS ORDERED: SODIUM CHLORIDE 0.9% 2,000 ML IV ONE (21:32)
[2020-11-30 23:43] LABS: Glucose,Whole Blood 80 mg/dL (75-99)
[2020-12-01] MEDS ORDERED: VALPROATE SODIUM 500 MG in SODIUM CHLORIDE 0.9% 50 ML IVPB SCH ×2
[2020-12-01] MEDS: NOREPINEPHRINE 32 MG in SODIUM CHLORIDE 0.9% 218 ML IV SCH ×2 (02:54→08:36)
[2020-12-01] MEDS: PIPERACILLIN-TAZOBACTAM 3.375 GM in SODIUM CHLORIDE 0.9% 100 ML IVPB SCH ×2 (02:54→11:15)
[2020-12-01 05:01] LABS: ABG Base Excess -15.7 mmol/L; ABG HCO3 13 mmol/L (21-25); ABG PCO2 38 mmHg (35-45); ABG TCO2 14 mmol/L (19-24); Allen Test Performed? Yes
[2020-12-01 05:17] VITALS: TEMP 100.2
[2020-12-01 05:29] LABS: ABG PH 7.15 (7.35-7.45); ABG PO2 125 mmHg (83-108)
[2020-12-01 05:42] LABS: Glucose,Whole Blood 108 mg/dL (75-99)
[2020-12-01 06:15] LABS: HCT 44.2 % (39.0-53.0); HGB 14.1 gm/dL (13.0-17.5); Hypochromasia Moderate; MCH 30.1 pg (25.0-35.0); MCV 94.1 fL (80.0-100.0); Mean Platelet Volume 8.2; Platelet Count 253 k/uL (150-450); RBC 4.69 m/uL (4.30-5.90); RDW 13.6 % (11.5-15.5); WBC 37.7 k/uL (3.8-10.6)
[2020-12-01 06:37] LABS: Band Neutrophils % 51 %; Metamyelocytes # (M) 0.75 k/uL (0); Metamyelocytes % 2 %; Monocytes # (M) 0.75 k/uL (0-1.0); Neutrophils % (M) 32 %; Nucleated Red Blood Cells 0 /100 WBC (0-0); Total Cells Counted 200
[2020-12-01 06:38] LABS: Toxic Granulation Present
[2020-12-01] MEDS: IPRATROPIUM-ALBUTEROL 3 ML NEB INHALATION SCH ×2 (07:45→11:36)
[2020-12-01] MEDS ORDERED: SODIUM BICARB 8.4% 50 ML SYR (1 MEQ/ML) IV STA (07:50)
--- NOTE | 2020-12-01 07:52 | P.PN ---
Subjective Progress Note Date: 12/01/20 35-year-old male patient was found unresponsive by EMS. There is history of polysubstance abuse. The patient was coded for a total of 30 minutes on the scene getting worse a total of 6 doses of epinephrine was given and the patient was also given CPR. The patient was intubated on the scene and following that he was brought in to the emergency department at [facility]. He arrived completely unresponsive with fixed dilated pupils. He was hypothermic. He was also hypotensive. Immediately was placed on norepinephrine infusion which is currently infusing at 0.5 mcg/kg per minute. Urine output is minimal at this point in time. The patient has hypothermic with a temperature of 32C at this point in time is on a mechanical ventilator with a rate of 1 with a rate with a tidal volume of 500 and FiO2 of 1% with a PEEP of 5. Blood gases showed a pH of 6.8 with a pCO2 of 89 and pO2 of 185. Coagulation profile was normal. Initial troponin was 0.04. The urine test is positive for amphetamine, methamphetamine, benzodiazepine, and marijuana and cocaine. He was also positive for opiates. UA is showing 14 WBCs, +1 protein, the CBC showing a white cell count of 8.2 hemoglobin 14.4. Post intubation chest x-ray shows an extensive right lung consolidation consistent with an aspiration pneumonia. ET tube was deviated trachea and had to be pulled back by about 1 cm. Patient is covered with IV Zosyn. Currently on pressors with high-dose norepinephrine infusion. Triple lumen catheter was inserted in his right femoral vein by emergency services. He remains completely unresponsive. He has not received any sedation. He is not breathing above the vent. Not to getting the respirator. Pupils are fixed dilated. No cough reflex. No gag reflex. No corneal reflex. No other history is available. The family is unknown and police is trying to locate family members. On today's evaluation on 11/30/2020 patient seen in the intensive care unit. He is intubated, on assist control mode of ventilation with a rate of 28, tidal vitamins 500, PEEP of 10 and FiO2 of 80%. This morning's blood gas showed pO2 of 156, pCO2 of 38, and pH of 7.10, this was done on 100% FiO2 and this has since been dropped down to 80%. Patient is currently on 3% hypertonic saline at 50 ML per hour, and norepinephrine infusion at 0.55 mics per kilo per minute, which is approximately 46 mics per minute. Today's chest x-ray has been reviewed showing progression of diffuse infiltrates involving the right lung, and stable left lower lobe infiltrate. Renal profile has worsened on today's labs creatinine is up to 2.9, and BUN is 27. Lara catheter is in place, patient is producing urine in the order of 30-50 ML per hour. He is on Zosyn for aspiration pneumonia, sputum culture has been sent showing rare PMNs, a few epithelial cells, and a few gram-positive cocci. Final cultures pending, blood cultures show no growth, urine culture has shown no growth. Patient has a low- grade fever this morning with a temp of 99.5F. He is in sinus mechanism, tachycardic with a rate of 133 BPM. His EEG showed background slowing suggestive of severe encephalopathy, however there was no evidence of focal slowing, epileptiform discharges or seizure activity. Repeat brain CT is pending this morning, admission brain CT showed no acute intracranial process. However computed tomography scan films were reviewed by neurologist of severe loss of spain to white matter junction, and decreased ventricle size throughout related to cerebral edema. Patient remains on hypertonic saline running at 50 ML per hour. This morning's labs have been reviewed, his white blood cell count slightly increased and is up to 14.5 on today's labs, hemoglobin is 16.4, platelet count 358, sodium is 143, potassium is 4.5, chloride is 114, CO2 is 12, B1 is 27, creatinine is 2.9, lactic acid is 10.7, troponins were elevated to 0.047, 0.826, and 7.2. His liver enzymes also came back elevated on yesterday's labs with AST 325, ALT 266, alk phos of 95, CPK was 485. His urine drug screen was positive for opiates, amphetamines, methamphetamines, benzodiazepines, cocaine, and marijuana, serum alcohol level is less than 10. Patient remains completely unresponsive, he has not received any sedation since admission, he breathes over the vent, his pupils are fixed and pinpoint. He slightly withdrew from deep painful stimuli after an attempt to elicit a Babinski response.. There is no gag or cough reflex. Negative Babinski, hypoactive deep tendon reflexes. Patient's parents are at the bedside stating that this is one of multiple overdose episodes. Most recently patient had a overdose in September 2020 however did not require intubation or mechanical ventilator support at that time. He received Narcan and his opiate overdose was successfully reversed at the time, patient was hospitalized [place]. Today repeat brain CT is pending, neurology Celestino closely following, a request was sent for transfer to [facility] per neurology recommendations. 12/01/2020, patient is being seen in follow-up in the intensive care unit. The patient remains comatose and unresponsive. No major change in his neurologic status. EEG was done yesterday and the patient was having some limited twitching and the EEG showed some burst suppression the patient was given a combination of Keppra and valproic acid. Neurologist on the case. Repeat CAT scan of the brain was done. There was some limited improvement in the cerebral edema based on the neurologist evaluation. Carotid Dopplers showed 50-70% stenosis in both carotid arteries. On today's evaluation, the patient is comatose. The patient is not responding to any painful stimulation. Does not withdraw to deep painful stimulation the pupils are about 3 mm in size, slightly C-reactive to light. No cough reflex. No gag reflex. No motor activity. No seizure activity. He remains on a mechanical ventilator on assist control mode with a tidal volume of 500 and her date of 28 and an FiO2 of 70% with a PEEP of 10. Blood. This morning shows a pH of 7.15 with a pCO2 of 38 and pO2 of 125. Chest x-ray showing still extensive consolidation of the right lung. She was in a good location. The patient is still having episodes of fever and the patient became progressively more hypotensive throughout the day yesterday and currently the patient is on high-dose pressors with norepinephrine infusion at 0.9 (kilogram per minute. Urine output is in order of 30-50 mL an hour and the patient has also developed an acute kidney injury. Creatinine is up to 2.9 with a serum bicarb of 12 and anion gap of 17. Most recent lactic acid level is at 8.9. Troponin peaked at 7.2. Echocardiac exam shows mild LV dysfunction with an ejection fraction of around 45-50%. No other valvular abnormalities noted. Blood culture was positive for coagulase-negative staph. Sputum culture was positive for strep and the patient remains on a combination of Zosyn and vancomycin. The white cell count is up to 37.7 with a hemoglobin of 14. Objective - Vital Signs Vital signs: Vital Signs Temp 100.2 F H 12/01/20 04:00 Pulse 129 H 12/01/20 07:00 Resp 27 H 12/01/20 07:00 BP 118/52 12/01/20 07:00 Pulse Ox 98 12/01/20 07:00 Intake & Output 11/30/20 12/01/20 12/01/20 18:59 06:59 18:59 Intake Total 001.126 7666.608 50 Output Total 520 465 30 Balance 282.716 3031.608 20 Weight 88 kg Intake: IV 560 2740 50 0.9 2180 20 Piperacillin-Tazobactam 3 200 .375 gm In Sodium Chloride 0.9% 100 ml @ 25 mls/hr IVPB Q8H [facility]ED[facility] Rx#: [id number] Sodium Chloride 3%( 560 360 30 Hypertonic) 500 ml @ 50 mls/hr IV .Q10H [facility]A Rx#: [id number] Intake, IV Titration 136.615 253.608 Amount Norepinephrine 32 mg In 195.5 Sodium Chloride 0.9% 218 ml @ 0.05 MCG/KG/MIN 1. 969 mls/hr IV .Q24H [facility] Rx#:[id number] Norepinephrine 8 mg In 136.615 58.108 Sodium Chloride 0.9% 250 ml @ 0.05 MCG/KG/MIN 8. 127 mls/hr IV .Q24H [facility]A Rx#:[id number] Output: Urine 520 465 30 Other: Voiding Method Indwelling Catheter Indwelling Catheter - Exam GENERAL EXAM: Unresponsive, intubated on assist control mode of ventilation, 35-year-old white male, with FiO2 of 70%, and PEEP of 10 comfortable in no apparent distress. Currently on no sedation, slightly withdraws from painful stimuli, breathes over the vent, no cough or gag reflex. absent corneal reflex HEAD: Normocephalic/atraumatic. EYES: Normal reaction of pupils, equal size. Conjunctiva pink, sclera white. NOSE: Clear with pink turbinates. THROAT: No erythema or exudates. NECK: No masses, no JVD, no thyroid enlargement, no adenopathy. CHEST: No chest wall deformity. Symmetrical expansion. LUNGS: Equal air entry with diffuse rhonchi CVS: Regular rate and rhythm, normal S1 and S2, no gallops, no murmurs, no rubs ABDOMEN: Soft, nontender. No hepatosplenomegaly, normal bowel sounds, no guarding or rigidity. EXTREMITIES: No clubbing, no edema, no cyanosis, 2+ pulses and upper and lower extremities. MUSCULOSKELETAL: Muscle strength and tone normal. SPINE: No scoliosis or deformity SKIN: No rashes, mottling noted of the skin bilateral lower extremities, knees, CENTRAL NERVOUS SYSTEM: Unresponsive, pupils are pinpoint midline, and fixed, negative corneal reflex negative Babinski, DTRs are hypoactive, slightly withdraws from painful stimuli, no gag or cough reflex. - Labs CBC & Chem 7: 12/01/20 05:55 11/30/20 20:45 Labs: Abnormal Lab Results - Last 24 Hours (Table) 11/30/20 11/30/20 11/30/20 Range/Units 08:52 08:52 11:28 WBC (3.8-10.6) k/uL Neutrophils # (Manual) (1.3-7.7) k/uL Lymphocytes # (Manual) (1.0-4.8) k/uL Metamyelocytes # (Man) (0) k/uL ABG pH (7.35-7.45) ABG pO2 (83-108) mmHg ABG HCO3 (21-25) mmol/L ABG Total CO2 (19-24) mmol/L ABG O2 Saturation (94-97) % Sodium 146 H (137-145) mmol/L POC Glucose (mg/dL) 139 H (75-99) mg/dL Plasma Lactic Acid Sebastian 8.9 H* (0.7-2.0) mmol/L 11/30/20 12/01/20 12/01/20 Range/Units 17:59 04:57 05:41 WBC (3.8-10.6) k/uL Neutrophils # (Manual) (1.3-7.7) k/uL Lymphocytes # (Manual) (1.0-4.8) k/uL Metamyelocytes # (Man) (0) k/uL ABG pH 7.15 L* (7.35-7.45) ABG pO2 125 H (83-108) mmHg ABG HCO3 13 L (21-25) mmol/L ABG Total CO2 14 L (19-24) mmol/L ABG O2 Saturation 99.0 H (94-97) % Sodium (137-145) mmol/L POC Glucose (mg/dL) 127 H 108 H (75-99) mg/dL Plasma Lactic Acid Sebastian (0.7-2.0) mmol/L 12/01/20 Range/Units 05:55 WBC 37.7 H (3.8-10.6) k/uL Neutrophils # (Manual) 31.20 H (1.3-7.7) k/uL Lymphocytes # (Manual) 4.90 H (1.0-4.8) k/uL Metamyelocytes # (Man) 0.75 H (0) k/uL ABG pH (7.35-7.45) ABG pO2 (83-108) mmHg ABG HCO3 (21-25) mmol/L ABG Total CO2 (19-24) mmol/L ABG O2 Saturation (94-97) % Sodium (137-145) mmol/L POC Glucose (mg/dL) (75-99) mg/dL Plasma Lactic Acid Sebastian (0.7-2.0) mmol/L Microbiology - Last 24 Hours (Table) 11/29/20 10:00 Urine Culture - Final Urine,Voided 11/29/20 12:46 Blood Culture - Preliminary Blood No Growth after 24 hours 11/29/20 10:16 Gram Stain - Preliminary Sputum Sputum Culture - Preliminary Strep agalactiae - (group b) 11/29/20 12:46 Blood Culture Gram Stain - Preliminary Blood Blood Culture - Preliminary Coagulase Negative Staph 11/29/20 12:46 Blood Culture - Final Blood Assessment and Plan Plan: 1 Acute cardiac arrest with a prolonged down time estimated to be at least 30 minutes.. Clinically the patient is unresponsive has not received any sedation. Consider anoxic encephalopathy. EEG showing burst suppression and the patient is currently on a combination of valproic acid and Keppra. This is secondary to cerebral dysfunction induced by cardiac arrest. The patient remains deeply comatose. The patient remains unresponsive with signs of severe hypoxic encephalopathy. Limited brainstem reflexes. He has been on of breathing above the vent. No corneal. No gag reflex. Pupils are round 3 mm in size and very sluggishly reactive to light. No motor function. No sensory functions. Completely unresponsive while being off sedation.Meanwhile, the patient remains in shock and the patient is currently requiring high doses of pressors for hemodynamic support currently levo fed is running at 0.9 mcg/kg per minute.Examination showing mild impairment of the LV function with an ejection fraction of 45%. 2 Anoxic brain injury related to the aboveNo signs of any twitching or seizure activity at least on clinical grounds and the patient is currently on a combination of Keppra and valproic acid. Neurologist on the case. Clinical exam consistent with severe anoxic encephalopathy 3 gram pos bacteremia, on Zosyn and Vanco, The patient continues to have episodes of fever and the patient's been adequately covered with antibiotics. The patient has adequate antibiotic coverage for now. 4 polysubstance abuse positive for benzodiazepines, opiates, marijuana, cocaine and amphetamine and methamphetamine 5 acute hypoxic respiratory failure currently intubated on a mechanical ventilator 4 acute right lung pneumonia, extensive consolidation involving the right lung, consider aspiration 5 acute shock currently on high-dose pressors secondary to above 6 severe metabolic acidosis 7 Acute non-ST segment elevation myocardial infarction. Troponin peaked at 7.2. Rule out cocaine effect 8 Fever. The patient is having episodes of fever, could be septic fevers versus central fever. Noted the patient was quite hypothermic at a time of his admission. Currently receiving Tylenol and external bleeding. 9 multiple episodes of overdose in the past, hence report over 20 episodes of OD related to polysubstance abuse including heroin. Last episode was in September 2020 10 acute kidney injury related to ATN, There is worsening of the renal function and the creatinine is up to 2.9. 11 history of hep C, untreated 12 elevated liver enzymes likely related to hypo-perfusion Plan: Continue ventilator support, Drop fio2 to 50 % Repeat blood cultures Patient received a total of 2 L of IV fluid yesterday. We'll put him on a maintenance of 150 mL an hour of normal saline and discontinue the hypertonic saline Continue Keppra and valproic acid This is a arterial line and monitor the blood pressure and wean off pressors if possible. Initiate enteral feeding for nutritional support Continue monitoring neurologic functions Monitor renal functions Give the patient the absence of sodium bicarb Check baseline serum cortisol level Contact gift of life DNR/DNI CODE STATUS Prognosis extremely poor baseline above-mentioned comorbidities. Family is at the bedside. Condition was updated to the family.. Critically care evaluation that was done and more than 30 minutes. Time with Patient: Greater than 30
--- NOTE | 2020-12-01 07:53 | P.PCN ---
Date of Procedure: 12/01/20 Preoperative Diagnosis: Shock Postoperative Diagnosis: Shock Procedure(s) Performed: arterial line, right radial Anesthesia: local Surgeon: Phil Alfonso [employer] Aid #1: Etelvina Peraza Estimated Blood Loss (ml): 0 Condition: critical Disposition: ICU Operative Findings: Indication: Hemodynamic monitoring. A time-out was completed verifying correct patient, procedure, site, positioning, and implant(s) or special equipment if applicable. Allens test was performed to ensure adequate perfusion. The patient s right wrist was prepped and draped in sterile fashion. 1% Lidocaine was used to anesthetize the area. An 18G Arrow arterial line was introduced into the radial artery. The catheter was threaded over the guide wire and the needle was removed with appropriate pulsatile blood return. Blood loss was minimal. The catheter was then sutured in place to the skin and a sterile dressing applied. Perfusion to the extremity distal to the point of catheter insertion was checked and found to be adequate. The patient tolerated the procedure well and there were no complications.
[2020-12-01] MEDS ORDERED: SODIUM CHLORIDE 0.9% 1,000 ML IV SCH (08:00)
--- NOTE | 2020-12-01 08:20 | XR ---
EXAMINATION TYPE: XR chest 1V portable DATE OF EXAM: 12/01/2020 COMPARISON: 11/30/2020 HISTORY: SOB, Follow Up FINDINGS: Indwelling tubes and catheters are unchanged. Diffuse infiltrate throughout the right lung persists and is slightly improved. Continued follow-up i s advised. Left lung is clear. Stable appearance of the cardio-mediastinal structures at this time. Pleural effusion unchanged. IMPRESSION: 1. Diffuse infiltrate throughout the right lung persists and is slightly improved. Continued follow- up is advised. Clinical correlation and follow up until resolution is recommended.
[2020-12-01] MEDS: SODIUM CHLORIDE 0.9% 50 ML with VASOPRESSIN 20 UNIT IVPB SCH ×6 (08:34→10:02)
[2020-12-01] MEDS ORDERED: SODIUM BICARB 8.4% 50 ML SYR (1 MEQ/ML) ONE (08:35)
[2020-12-01] MEDS: levETIRAcetam IV 750 MG in SODIUM CHLORIDE 0.9% 100 ML IVPB SCH (08:58)
[2020-12-01] MEDS ORDERED: ENOXAPARIN 30 MG/0.3 ML SYRINGE SQ SCH (09:00)
[2020-12-01] MEDS ORDERED: PANTOPRAZOLE 40 MG/10 ML VIAL IVP SCH (09:00)
[2020-12-01 09:09] LABS: Albumin 2.4 g/dL (3.5-5.0); Calcium 6.9 mg/dL (8.4-10.2); Total Bilirubin 2.8 mg/dL (0.2-1.3); Total Protein 4.6 g/dL (6.3-8.2)
[2020-12-01 09:10] LABS: Potassium 6.7 mmol/L (3.5-5.1)
[2020-12-01] MEDS ORDERED: CALCIUM CHLORIDE 100 MG/ML 10 ML SYRINGE IVP ONE (09:22)
[2020-12-01] MEDS ORDERED: DEXTROSE 50% SYRINGE 50 ML IVP STA (09:24)
--- NOTE | 2020-12-01 09:31 | P.PN ---
Subjective Progress Note Date: 11/30/20 35 years old male who presents with cardiac arrest. Patient was seen with his friends, last time he was seen a week was yesterday evening. This morning patient was found unresponsive and EMS were called, he underwent CPR and the downtown was about 35-40 minutes, 6 Amps of epinephrine. At presentation he was hypothermic with a temperature of 32.4. He was hypotensive and he had to be placed on the levophed at 0.05 and later on has to be increased at 1.0 g per KG per minute. He was intubated and in place and mechanical ventilations with PEEP of 5, R and had to be increased to 10, tidal: Was 500 and FiO2 of 100%. His pH showing acidosis with 6.8, high pCO2 of 89 and PaO2 185. Troponin were elevated mildly to 0.08 and 0.04. Urine was positive with amphetamines, methamphetamines, benzodiazepines, opioids, cocaine, marijuana. As per report. His friends patient was using any illicit substance he can get his hands on. Chest x-ray showing extensive right lung consolidation suspicious for aspiration pneumonia and patient was started on Zosyn He was unresponsive with pupils fixed and dilated, neurologist suspected cerebral edema and he was started on mannitol and hypertonic saline with low sodium monitoring. Also he was started on Keppra prophylactically. His liver enzymes were slightly elevated around 200-301 increased at 55. Despite his very poor prognosis neurologist recommended patient to be transferred to a tertiary care center today given his age and to give him last chance. [facility] accepted the patient. Objective - Vital Signs Vital signs: Vital Signs Temp 99.5 F 11/30/20 06:00 Pulse 117 H 11/30/20 10:45 Resp 28 H 11/30/20 07:00 BP 122/75 11/30/20 07:00 Pulse Ox 98 11/30/20 07:00 Intake & Output 11/29/20 11/30/20 11/30/20 18:59 06:59 18:59 Intake Total 250.000 460.706 50 Output Total 1650 830 40 Balance -1400.000 -369.294 10 Weight 90.718 kg 84 kg Intake: IV 250 50 Sodium Chloride 3%( 250 50 Hypertonic) 500 ml @ 50 mls/hr IV .Q10H [facility] Rx#: [id number] Intake, IV Titration 250.000 210.706 Amount Norepinephrine 32 mg In 250.000 210.706 Sodium Chloride 0.9% 218 ml @ 0.05 MCG/KG/MIN 2. 126 mls/hr IV .Q24H [facility] Rx#:[id number] Output: Urine 1650 830 40 Other: Voiding Method Indwelling Catheter - Exam -GENERAL: The patient is unresponsive to verbal or tactile stimuli. Patient is intubated on mechanical ventilation HEENT: Pupils are round and equally reacting to light. EOMI. No scleral icterus. No conjunctival pallor. Normocephalic, atraumatic. No pharyngeal erythema. No thyromegaly. CARDIOVASCULAR: S1 and S2 present. No murmurs, rubs, or gallops. PULMONARY: Chest is clear to auscultation, no wheezing or crackles. ABDOMEN: Soft, nontender, nondistended, normoactive bowel sounds. No palpable organomegaly. MUSCULOSKELETAL: No joint swelling or deformity. EXTREMITIES: No cyanosis, clubbing, or pedal edema. -NEUROLOGICAL: , comatose, unresponsive. Pupils are fixed and dilated, and unreactive to light, slight twitch in of the right thigh muscles. Exam is limited by the patient condition and the fact he is intubated -SKIN: No rashes. no petechiae. multiple needle solis in both extremities - Labs CBC & Chem 7: 12/01/20 05:55 12/01/20 08:20 Labs: Abnormal Lab Results - Last 24 Hours (Table) 11/29/20 11/29/20 11/29/20 Range/Units 10:01 10:01 12:46 WBC (3.8-10.6) k/uL MCV 101.0 H (80.0-100.0) fL MCHC 29.8 L (31.0-37.0) g/dL Neutrophils # (Manual) (1.3-7.7) k/uL Lymphocytes # (Manual) 5.25 H (1.0-4.8) k/uL Metamyelocytes # (Man) 0.09 H (0) k/uL Myelocytes # (Manual) 0.09 H (0) k/uL ABG pH (7.35-7.45) ABG pO2 (83-108) mmHg ABG HCO3 (21-25) mmol/L ABG Total CO2 (19-24) mmol/L ABG O2 Saturation (94-97) % Sodium 134 L (137-145) mmol/L Potassium 5.2 H (3.5-5.1) mmol/L Chloride (98-107) mmol/L Carbon Dioxide 7 L* (22-30) mmol/L BUN (9-20) mg/dL Creatinine 2.07 H (0.66-1.25) mg/dL Glucose 341 H (74-99) mg/dL POC Glucose (mg/dL) (75-99) mg/dL Plasma Lactic Acid Sebastian (0.7-2.0) mmol/L Calcium (8.4-10.2) mg/dL AST 325 H (17-59) U/L ALT 266 H (4-49) U/L Ammonia (<30) umol/L Creatine Kinase 485 H (55-170) U/L Troponin I 0.826 H* (0.000-0.034) ng/mL Total Protein 6.0 L (6.3-8.2) g/dL Albumin 3.4 L (3.5-5.0) g/dL 11/29/20 11/29/20 11/30/20 Range/Units 13:41 19:00 00:45 WBC (3.8-10.6) k/uL MCV (80.0-100.0) fL MCHC (31.0-37.0) g/dL Neutrophils # (Manual) (1.3-7.7) k/uL Lymphocytes # (Manual) (1.0-4.8) k/uL Metamyelocytes # (Man) (0) k/uL Myelocytes # (Manual) (0) k/uL ABG pH (7.35-7.45) ABG pO2 (83-108) mmHg ABG HCO3 (21-25) mmol/L ABG Total CO2 (19-24) mmol/L ABG O2 Saturation (94-97) % Sodium 135 L (137-145) mmol/L Potassium (3.5-5.1) mmol/L Chloride (98-107) mmol/L Carbon Dioxide (22-30) mmol/L BUN (9-20) mg/dL Creatinine (0.66-1.25) mg/dL Glucose (74-99) mg/dL POC Glucose (mg/dL) 161 H (75-99) mg/dL Plasma Lactic Acid Sebastian (0.7-2.0) mmol/L Calcium (8.4-10.2) mg/dL AST (17-59) U/L ALT (4-49) U/L Ammonia 55 H (<30) umol/L Creatine Kinase (55-170) U/L Troponin I (0.000-0.034) ng/mL Total Protein (6.3-8.2) g/dL Albumin (3.5-5.0) g/dL 11/30/20 11/30/20 11/30/20 Range/Units 01:46 03:25 03:45 WBC 14.5 H (3.8-10.6) k/uL MCV (80.0-100.0) fL MCHC (31.0-37.0) g/dL Neutrophils # (Manual) 11.60 H (1.3-7.7) k/uL Lymphocytes # (Manual) (1.0-4.8) k/uL Metamyelocytes # (Man) 0.44 H (0) k/uL Myelocytes # (Manual) 0.15 H (0) k/uL ABG pH (7.35-7.45) ABG pO2 (83-108) mmHg ABG HCO3 (21-25) mmol/L ABG Total CO2 (19-24) mmol/L ABG O2 Saturation (94-97) % Sodium (137-145) mmol/L Potassium (3.5-5.1) mmol/L Chloride (98-107) mmol/L Carbon Dioxide (22-30) mmol/L BUN (9-20) mg/dL Creatinine (0.66-1.25) mg/dL Glucose (74-99) mg/dL POC Glucose (mg/dL) (75-99) mg/dL Plasma Lactic Acid Sebastian 10.7 H* (0.7-2.0) mmol/L Calcium (8.4-10.2) mg/dL AST (17-59) U/L ALT (4-49) U/L Ammonia (<30) umol/L Creatine Kinase (55-170) U/L Troponin I 7.200 H* (0.000-0.034) ng/mL Total Protein (6.3-8.2) g/dL Albumin (3.5-5.0) g/dL 11/30/20 11/30/20 11/30/20 Range/Units 04:30 04:50 06:03 WBC (3.8-10.6) k/uL MCV (80.0-100.0) fL MCHC (31.0-37.0) g/dL Neutrophils # (Manual) (1.3-7.7) k/uL Lymphocytes # (Manual) (1.0-4.8) k/uL Metamyelocytes # (Man) (0) k/uL Myelocytes # (Manual) (0) k/uL ABG pH 7.10 L* (7.35-7.45) ABG pO2 156 H (83-108) mmHg ABG HCO3 12 L (21-25) mmol/L ABG Total CO2 13 L (19-24) mmol/L ABG O2 Saturation 98.8 H (94-97) % Sodium (137-145) mmol/L Potassium (3.5-5.1) mmol/L Chloride 114 H (98-107) mmol/L Carbon Dioxide 12 L (22-30) mmol/L BUN 27 H (9-20) mg/dL Creatinine 2.99 H (0.66-1.25) mg/dL Glucose 159 H (74-99) mg/dL POC Glucose (mg/dL) 159 H (75-99) mg/dL Plasma Lactic Acid Sebastian (0.7-2.0) mmol/L Calcium 7.7 L (8.4-10.2) mg/dL AST (17-59) U/L ALT (4-49) U/L Ammonia (<30) umol/L Creatine Kinase (55-170) U/L Troponin I (0.000-0.034) ng/mL Total Protein (6.3-8.2) g/dL Albumin (3.5-5.0) g/dL 11/30/20 11/30/20 Range/Units 08:52 08:52 WBC (3.8-10.6) k/uL MCV (80.0-100.0) fL MCHC (31.0-37.0) g/dL Neutrophils # (Manual) (1.3-7.7) k/uL Lymphocytes # (Manual) (1.0-4.8) k/uL Metamyelocytes # (Man) (0) k/uL Myelocytes # (Manual) (0) k/uL ABG pH (7.35-7.45) ABG pO2 (83-108) mmHg ABG HCO3 (21-25) mmol/L ABG Total CO2 (19-24) mmol/L ABG O2 Saturation (94-97) % Sodium 146 H (137-145) mmol/L Potassium (3.5-5.1) mmol/L Chloride (98-107) mmol/L Carbon Dioxide (22-30) mmol/L BUN (9-20) mg/dL Creatinine (0.66-1.25) mg/dL Glucose (74-99) mg/dL POC Glucose (mg/dL) (75-99) mg/dL Plasma Lactic Acid Sebastian 8.9 H* (0.7-2.0) mmol/L Calcium (8.4-10.2) mg/dL AST (17-59) U/L ALT (4-49) U/L Ammonia (<30) umol/L Creatine Kinase (55-170) U/L Troponin I (0.000-0.034) ng/mL Total Protein (6.3-8.2) g/dL Albumin (3.5-5.0) g/dL Microbiology - Last 24 Hours (Table) 11/29/20 12:46 Blood Culture Gram Stain - Preliminary Blood 11/29/20 10:16 Gram Stain - Preliminary Sputum Sputum Culture - Preliminary 11/29/20 12:46 Blood Culture - Final Blood 11/29/20 10:00 Urine Culture - Preliminary Urine,Voided Assessment and Plan Assessment: Status post cardiac arrest, downtown was more than 30 minutes Patient is unresponsive with Possible cerebral edema. Anoxic brain energy is highly suspected. Right aspiration pneumonia with septic shock Acute hypoxemic respiratory failure requiring intubation and mechanical ventilation Substance abuse with urine drug screen positive for many substances including amphetamine/methamphetamine, benzodiazepine, opioids, marijuana, cocaine Severe acidosis Mildly elevated troponin Mildly elevated liver enzymes and ammonia Plan: This is a 35 years old male who presents with cardiac arrest and unresponsiveness. Continue with mechanical ventilation with pulmonary/critical team consult Neurology consult recommended mannitol and hypertonic saline with close monitoring of sodium continue with antibiotic and follow-up culture Monitor liver enzymes and troponin Monitor input and output. Keep Keppra for seizure prophylaxis Monitor lytes and vitals. DVT and GI prophylaxis. Further recommendations as per clinical course of the patient DVT prophylaxis: Subcutaneous Lovenox GI Prophylaxis: Pepcid Prognosis is very poor Discussed the case with family at bedside including the father and mother, they agree for patient to be transferred to [facility] Dr. Lino from [facility] accepted the patient but wanted to discuss it with his critical care team. Pending for bed availability
[2020-12-01] MEDS: VANCOMYCIN 1,500 MG in SODIUM CHLORIDE 0.9% 250 ML IVPB SCH (09:39)
[2020-12-01] MEDS: THIAMINE 100 MG/ML 2 ML VIAL IVP SCH (09:39)
[2020-12-01] MEDS: SODIUM CHLORIDE 0.9% 1,000 ML IV SCH ×2 (09:42→10:40)
[2020-12-01] MEDS ORDERED: INSULIN REGULAR 100 UNIT/ML VIAL (IV) IV ONE (09:45)
[2020-12-01] MEDS ORDERED: CALCIUM CHLORIDE 1,000 MG in SODIUM CHLORIDE 0.9% 100 ML IV ONE (09:45)
[2020-12-01 09:56] VITALS: RESP 26
[2020-12-01 10:22] VITALS: BP 94/35
[2020-12-01] MEDS: ASPIRIN 300 MG SUPP RECTAL SCH (11:15)
[2020-12-01] MEDS ORDERED: LACOSAMIDE IV 100 MG in SODIUM CHLORIDE 0.9% 50 ML IVPB SCH (11:30)
--- NOTE | 2020-12-01 11:32 | P.PN ---
Subjective Progress Note Date: 12/01/20 She was seen at bedside and per the patient's nurse as well as the family members were bedside that there is no any improvement in the patient's condition. Per the patient's nurse the he's not responding following commands at. They felt he is only breathing over event. The nurse there is no further twitching of the face. Patient is on Norepinephrine and vasopressin to keep his blood pressure elevated. He is not on any sedation medications. His creatinine the function, potassium level and liver function are extremely elevated. His 3% hypertonic saline is discontinued the in the morning by the [facility] attending. Objective - Vital Signs Vital signs: Vital Signs Temp 100.2 F H 12/01/20 04:00 Pulse 129 H 12/01/20 11:00 Resp 26 H 12/01/20 11:00 BP 94/35 12/01/20 10:30 Pulse Ox 97 12/01/20 11:00 Intake & Output 11/30/20 12/01/20 12/01/20 18:59 06:59 18:59 Intake Total 489.950 2988.608 3113.192 Output Total 520 465 165 Balance 948.148 5639.608 2948.192 Weight 88 kg Intake: IV 560 2740 662 0.9 @150 2180 620 Piperacillin-Tazobactam 3 200 .375 gm In Sodium Chloride 0.9% 100 ml @ 25 mls/hr IVPB Q8H [facility] Rx#: [id number] Pressure bag 12 Sodium Chloride 3%( 560 360 30 Hypertonic) 500 ml @ 50 mls/hr IV .Q10H [facility] Rx#: [id number] Intake, IV Titration 136.615 188.551 4951.192 Amount Calcium Chloride 1,000 mg 100 In Sodium Chloride 0.9% 100 ml @ 100 mls/hr IV ONCE [facility] Rx#:[id number] Norepinephrine 32 mg In 195.5 251.192 Sodium Chloride 0.9% 218 ml @ 0.05 MCG/KG/MIN 1. 969 mls/hr IV .Q24H [facility] Rx#:[id number] Norepinephrine 8 mg In 136.615 58.108 Sodium Chloride 0.9% 250 ml @ 0.05 MCG/KG/MIN 8. 127 mls/hr IV .Q24H [facility] Rx#:[id number] Sodium Chloride 0.9% 1, 2000 000 ml @ 999 mls/hr IV . Q1H1M [facility] Rx#:[id number] levETIRAcetam IV 750 mg 100 In Sodium Chloride 0.9% 100 ml @ 400 mls/hr IVPB Q12HR [facility] Rx#:[id number] Oral 0 Output: Urine 520 465 165 Other: Voiding Method Indwelling Catheter Indwelling Catheter ABP, PAP, CO, CI - Last Documented Arterial Blood Pressure 133/40 - Exam GENERAL: The patient is lying and does not appear in distin bed and is not in acute distress. Cardivascular: He is on Norepinephrine and Vasopressin IV. NEUROLOGICAL: Not on any sedation. Higher mental function: Comatose. GCS3 (E1, VT1, M1). Not attempting to verbalize or following commands. Cranial nerves: I had to manually opens his eyes. Primary gaze is midline. The pupils are round, equal and are 2mm and nonreactive to light. No corneal reflex. No facial weakness. Negative occulocephalic reflex. Negative gag or cough reflex. Is breathing over the vent (set at 26 and is breathing at 27). Has agonal breathing. Otherwise rest could not be assessed because of his condition. Motor: The strength is could not be assess because of his condition. No withdrawing to any painful stimuli. Decrease tone throughout. Normal bulk. Cerebellum: Unable to assess. Sensation: Unable to assess light touch and not withdrawing or grimacing to painful stimuli. Reflexes (right/left): Triceps are 1-2+. Otherwise 1+ throughout. Plantars are mute bilaterally. WORK-UP: CT of the head is reported as no acute intracranial process seen at this time. I personally reviewed the CT of the head and I feel like the patient has severe loss of spain to white matter junction and constricted ventricle size throughout because of cerebral edema. He had a repeat CT of the head and is reported as no acute intracranial hemorrhage, mass effect or midline shift is seen. However there are new areas of low attenuation involving bilateral basilar ganglia and thalamus suspicious for acute ischemia. Recommend follow-up MRI. I personally reviewed that the CT of the head and I do agree there is the basal ganglia and the the thalamus which seen suspicious for acute ischemia. I personally spoke with the reading radiologist (Dr. Lino) regarding the global cerebral edema on the initial CT of the head and he agreed and also agreed with improvement on today's repeat CT head. He stated he will notify Dr. Camarillo to update note. Routine EEG on 11/29/2020: Is abnormal. The background slowing is suggestive of severe supple tachycardia. There are no focal slowing, epileptiform discharges or seizure on EEG. Routine EEG on 11/30/2020: Abnormal. The background is suggestive of severe encephalopathy. The burst suppression activity. Most current labs (12/01/20): liver function is AST of 2005 and ALT of 1600, creatinine is 6.3, potassium is 6.7 ammonia level is 34 which is trending down from 2 days ago which was 55. Most recent sodium is 152 today at 8:20am. Urine toxicology screen is positive for opiates, amphetamine, methamphetamine, benzodiazepine, cocaine and marijuana. Serum alcohol level was less than 10. His troponin is elevated to 7.20. TSH is 0.631 which is considered within normal limits. Urinalysis is negative for urinary tract infection. - Labs CBC & Chem 7: 12/01/20 05:55 12/01/20 08:20 Labs: Abnormal Lab Results - Last 24 Hours (Table) 11/30/20 11/30/20 12/01/20 Range/Units 11:28 17:59 04:57 WBC (3.8-10.6) k/uL Neutrophils # (Manual) (1.3-7.7) k/uL Lymphocytes # (Manual) (1.0-4.8) k/uL Metamyelocytes # (Man) (0) k/uL ABG pH 7.15 L* (7.35-7.45) ABG pO2 125 H (83-108) mmHg ABG HCO3 13 L (21-25) mmol/L ABG Total CO2 14 L (19-24) mmol/L ABG O2 Saturation 99.0 H (94-97) % ABG Lactic Acid (0.5-1.6) mmol/L Sodium (137-145) mmol/L Potassium (3.5-5.1) mmol/L Chloride (98-107) mmol/L Carbon Dioxide (22-30) mmol/L BUN (9-20) mg/dL Creatinine (0.66-1.25) mg/dL Glucose (74-99) mg/dL POC Glucose (mg/dL) 139 H 127 H (75-99) mg/dL Calcium (8.4-10.2) mg/dL Total Bilirubin (0.2-1.3) mg/dL AST (17-59) U/L ALT (4-49) U/L Ammonia (<30) umol/L Total Protein (6.3-8.2) g/dL Albumin (3.5-5.0) g/dL 12/01/20 12/01/20 12/01/20 Range/Units 05:41 05:55 08:20 WBC 37.7 H (3.8-10.6) k/uL Neutrophils # (Manual) 31.20 H (1.3-7.7) k/uL Lymphocytes # (Manual) 4.90 H (1.0-4.8) k/uL Metamyelocytes # (Man) 0.75 H (0) k/uL ABG pH (7.35-7.45) ABG pO2 (83-108) mmHg ABG HCO3 (21-25) mmol/L ABG Total CO2 (19-24) mmol/L ABG O2 Saturation (94-97) % ABG Lactic Acid 6.8 H* (0.5-1.6) mmol/L Sodium (137-145) mmol/L Potassium (3.5-5.1) mmol/L Chloride (98-107) mmol/L Carbon Dioxide (22-30) mmol/L BUN (9-20) mg/dL Creatinine (0.66-1.25) mg/dL Glucose (74-99) mg/dL POC Glucose (mg/dL) 108 H (75-99) mg/dL Calcium (8.4-10.2) mg/dL Total Bilirubin (0.2-1.3) mg/dL AST (17-59) U/L ALT (4-49) U/L Ammonia (<30) umol/L Total Protein (6.3-8.2) g/dL Albumin (3.5-5.0) g/dL 12/01/20 12/01/20 Range/Units 08:20 08:20 WBC (3.8-10.6) k/uL Neutrophils # (Manual) (1.3-7.7) k/uL Lymphocytes # (Manual) (1.0-4.8) k/uL Metamyelocytes # (Man) (0) k/uL ABG pH (7.35-7.45) ABG pO2 (83-108) mmHg ABG HCO3 (21-25) mmol/L ABG Total CO2 (19-24) mmol/L ABG O2 Saturation (94-97) % ABG Lactic Acid (0.5-1.6) mmol/L Sodium 152 H (137-145) mmol/L Potassium 6.7 H* (3.5-5.1) mmol/L Chloride 125 H (98-107) mmol/L Carbon Dioxide 14 L (22-30) mmol/L BUN 54 H (9-20) mg/dL Creatinine 6.30 H (0.66-1.25) mg/dL Glucose 137 H (74-99) mg/dL POC Glucose (mg/dL) (75-99) mg/dL Calcium 6.9 L (8.4-10.2) mg/dL Total Bilirubin 2.8 H (0.2-1.3) mg/dL AST 2005 H (17-59) U/L ALT 1600 H (4-49) U/L Ammonia 34 H (<30) umol/L Total Protein 4.6 L (6.3-8.2) g/dL Albumin 2.4 L (3.5-5.0) g/dL Microbiology - Last 24 Hours (Table) 11/29/20 10:16 Gram Stain - Preliminary Sputum Sputum Culture - Preliminary Strep agalactiae - (group b) Presumptive Staph aureus 11/29/20 10:00 Urine Culture - Final Urine,Voided 11/29/20 12:46 Blood Culture - Preliminary Blood No Growth after 24 hours 11/29/20 12:46 Blood Culture Gram Stain - Preliminary Blood Blood Culture - Preliminary Coagulase Negative Staph Assessment and Plan Assessment: * Severe Anoxic brain injury due to prolonged cardiac arrest (at least 30 minutes). Cardiac arrest due to polysubstance use. No on any sedation * Has some component of toxic-metabolic encephalopathy due to above * Bilateral basilar ganglia and thalamus suspicious for acute ischemia (due to his use of cocaine/amphetamine and methamphetamine which causes vasocontriction) * Moderate to Severe Global cerebral vasogenic edema due to above--resolved * Polysubstance abuse (UDS positive for positive for opiates, amphetamine, methamphetamine, benzodiazepine, cocaine) since age 17 years old per family * Elevated liver function tests likely liver shock from cardiac arrest--worsening * Acute kidney insufficiency with hyperkalemia--worsening * Hypothermic due Likely #1 * Acute hypoxic respiratory failure and is intubated on a mechanical ventilation * Severe metabolic acidosis * Troponin leak * History of alcohol use Plan: I ordered CT head (once patient is stable. Per nurse currently it will be tough because of his cardiac condition requiring two medication to keep his blood pressure up). Ordered STAT EEG. On aspirin 300 mg rectally and Lipitor 40 mg daily at bedtime for secondary stroke prophylaxis. Will try to obtain Isradipine (calcium chancel nicole) which is shown to be beneficial cocaine induced ischemia. Spoke with the pharmacist and stated they will try to obtain from [facility]. Goal Na is 145-155. Q4 hour sodium checks. Continue on prophylactically Keppra 750mg IV every 12 hours. Started Depakote 5 00mg IV every 12 hours yesterday and I will discontinue because of his worsening Liver function and will start instead Vimpat 100mg bid IV. Q1 hours neuro-checks. Continue Thiamine 100mg daily IV. We'll defer the rest of the medical management to the primary and ICU team. Patient's prognosis appears very poor because of the prolonged cardiac arrest, significant cerebral edema and neurological exam (has only brainstem reflex: breathing over vent). The plan is discussed with the patient parents (who are bedside) and nurse. I was notified by nurse shortly later that family wants to withdrawl care. Francis Ho MD Neuro-Hospitalist Time with Patient: Less than 30
[2020-12-01] MEDS ORDERED: ATROPINE OPHTH SOLN 1% 5ML BTL SUBLINGUAL PRN (11:45)
[2020-12-01 11:46] VITALS: PULSE 129
[2020-12-02 11:58] LABS: Chol/HDL Ratio 6.11; LDL Cholesterol,Calculated 12.2 mg/dL (0.0-131.0); VLDL Calculation 33.8 mg/dL (5.00-40.00)
== END 2020-12-01 13:00 | disposition expired | DRG 917 ==
LOC: EDBD → EC 09:19 → 2SICU 11:04
PROVIDERS: ADMIT Internal Medicine; ATTEND Internal Medicine
PROC: 3E043XZ Introduction of Vasopressor into Central Vein, Percutaneous Approach (ICD-10-PCS; 2020-11-29)
PROC: 02HV33Z Insertion of Infusion Device into Superior Vena Cava, Percutaneous Approach (ICD-10-PCS; 2020-11-29)
PROC: 0D9670Z Drainage of Stomach with Drainage Device, Via Natural or Artificial Opening (ICD-10-PCS; 2020-11-29)
PROC: 5A1945Z Respiratory Ventilation, 24-96 Consecutive Hours (ICD-10-PCS; principal; 2020-11-30)
PROC: 03HY32Z Insertion of Monitoring Device into Upper Artery, Percutaneous Approach (ICD-10-PCS; 2020-12-01)
PROC: 4A133B1 Monitoring of Arterial Pressure, Peripheral, Percutaneous Approach (ICD-10-PCS; 2020-12-01)
PROC: 4A133J1 Monitoring of Arterial Pulse, Peripheral, Percutaneous Approach (ICD-10-PCS; 2020-12-01)
DX: T40.1X1A Poisoning by heroin, accidental (unintentional), initial encounter (principal); A41.9 Sepsis, unspecified organism; R65.21 Severe sepsis with septic shock; J69.0 Pneumonitis due to inhalation of food and vomit; G93.6 Cerebral edema; J96.01 Acute respiratory failure with hypoxia; K72.00 Acute and subacute hepatic failure without coma; G92 Toxic encephalopathy; N17.0 Acute kidney failure with tubular necrosis; I21.4 Non-ST elevation (NSTEMI) myocardial infarction; E87.2 Acidosis; G93.1 Anoxic brain damage, not elsewhere classified; I67.82 Cerebral ischemia; T40.5X1A Poisoning by cocaine, accidental (unintentional), initial encounter; I46.8 Cardiac arrest due to other underlying condition; F11.90 Opioid use, unspecified, uncomplicated; F17.200 Nicotine dependence, unspecified, uncomplicated; Z82.49 Family history of ischemic heart disease and other diseases of the circulatory system; F12.10 Cannabis abuse, uncomplicated; F14.10 Cocaine abuse, uncomplicated; F15.10 Other stimulant abuse, uncomplicated; R68.0 Hypothermia, not associated with low environmental temperature; B18.2 Chronic viral hepatitis C; E87.5 Hyperkalemia; I65.23 Occlusion and stenosis of bilateral carotid arteries; Z83.3 Family history of diabetes mellitus
CPT/HCPCS: 36415; 36600; 70450; 71045; 80048; 80053; 80061; 80306; 80320; 81001; 82140; 82533; 82550; 82805; 83605; 84295; 84443; 84484; 85025; 85610; 85730; 87040; 87070; 87077; 87086; 87186; 87205; 93005; 93306; 93880; 94002; 94003; 94640; 95822; 96360; 99291